=== PATIENT | female | born 1940 | race Caucasian/White ===

== ENCOUNTER 2016-12-30 14:29 | Inpatient (IN) | payer MEDICARE, OTHER ==
--- NOTE | 2016-12-30 16:12 | EDM.PDOC ---
ED HPI GI/ABDOMINAL - General Chief Complaint: Gastrointestinal Problem Stated Complaint: FROM MEDICAL CLINIC Time Seen by Provider: 12/30/16 14:38 Source of Information: Reports: Patient, RN notes reviewed - History of Present Illness INITIAL COMMENTS - FREE TEXT/NARRATIVE: 76 year old female sent over from clinic with concern of vomiting blood. She awakened nauseated about 4:00 this AM, vomited large amt,was brown, not aware of blood, than vomited again about 3 hrs later and saw an inch sized blood clot with the vomitus. No major burning or other abd pain. She was started on Xarelto about 2 wks ago for DVT L leg. She also takes motrin, about 600 mg 2 to 3 times daily for arthritis. No chest pain. However she did feel weak and dizzy at home standing. - Related Data Allergies/ADRs: Allergies Allergy/AdvReac Type Severity Reaction Status Date / Time No Known Allergies Allergy Verified 12/30/16 14:43 Home Meds: Home Meds Alendronate Sodium [Alendronate] 70 mg PO ASDIRECTED 12/30/16 [History] Amitriptyline [Elavil] 25 mg PO BEDTIME 12/30/16 [History] Calcium Carbonate 1,200 mg PO DAILY 12/30/16 [History] Docusate Sodium 100 mg PO BEDTIME 12/30/16 [History] Enalapril Maleate 20 mg PO ASDIRECTED 12/30/16 [History] Ibuprofen 600 mg PO Q4H PRN 12/30/16 [History] Multivits-Min/Iron/FA/Lutein [Centrum Silver Women Tablet] 1 each PO DAILY 12/30 [History] Rivaroxaban [Xarelto] 20 mg PO DAILY 12/30/16 [History] Sertraline HCl 100 mg PO ASDIRECTED 12/30/16 [History] atorvaSTATin Calcium [Atorvastatin Calcium] 40 mg PO DAILY 12/30/16 [History] Past Medical History HEENT History: Reports: Cataract, Impaired vision Cardiovascular History: Reports: High cholesterol Gastrointestinal History: Reports: Colon polyp, Irritable bowel syndrome 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: Musculoskeletal History: Reports: Fibromyalgia Hematologic History: Reports: Blood transfusion(s) Other Hematologic History: Post op at [place] - Past Surgical History GI Surgical History: Reports: Other (see below) Other GI Surgeries/Procedures: surgery on colon 13 years ago for pre cancer in [place] Social & Family History - Family History Cardiac: Reports: Heart failure, High cholesterol, Hypertension GI: Reports: GI bleed - Tobacco Use Smoking Status *Q: Never Smoker - Caffeine Use Caffeine Use: Reports: Tea - Recreational Drug Use Recreational Drug Use: No ED ROS GENERAL - Review of Systems Review Of Systems: See Below Constitutional: Denies: fever, chills, diaphoresis HEENT: Denies: Sinus problem, Throat pain Respiratory: Denies: Shortness of Breath, Pleuritic Chest Pain, Cough Cardiovascular: Reports: Lightheadedness. Denies: Chest pain, Edema, Syncope GI/Abdominal: Reports: Hematemesis (blood clot present with 2nd episode of vomiting), Nausea, Vomiting (has vomited twice this past morning). Denies: Abdominal pain Musculoskeletal: Reports: joint pain (hx arthritis). Denies: back pain, leg pain Skin: Denies: bruising, rash, erythema Neurological: Reports: Dizziness (when standing), Weakness (when standing). Denies: Numbness, Tingling, Change in Speech ED EXAM, GI/ABD - Physical Exam Exam: See Below General Appearance: alert, no apparent distress Eyes: bilateral: normal appearance Throat/Mouth: Normal inspection, Normal oropharynx Neck: supple, full range of motion Respiratory/Chest: no respiratory distress, lungs clear, normal breath sounds Cardiovascular: tachycardia GI/Abdominal: soft, non tender. No: guarding Rectal (Female) Exam: Other (patient had rectal exam at clinic a short time ago , heme neg at that time) Back Exam: No: CVA tenderness (L), CVA tenderness (R) Neurological: alert, oriented, no motor/sensory deficits Skin Exam: Warm, Dry, Normal color, No rash Course - Vital Signs Last Recorded V/S: Last Vital Signs Temp 97 F 12/30/16 14:46 Pulse 111 H 12/30/16 14:46 Resp 16 12/30/16 14:46 BP 133/70 12/30/16 14:46 Pulse Ox 97 12/30/16 14:46 Orthostatic Blood Pressure [ 107/74 Standing] Orthostatic Blood Pressure [ 143/123 Sitting] Orthostatic Blood Pressure [ 134/75 Supine] - Orders/Labs/Meds Orders: Active Orders 24 hr Category Date Time Status Admission Status [Patient Status] [ADT] Routine ADT 12/30/16 16:27 Active INR,PT,PROTHROMBIN TIME [COAG] Stat Lab 12/30/16 16:04 Received PTT,PARTIAL THROMBOPLSTIN TIME [COAG] Stat Lab 12/30/16 16:04 Received Labs: Laboratory Tests 12/30/16 Range/Units 16:04 Hgb 10.7 L (11.2-15.7) gm/L Meds: Medications Discontinued Medications Generic Name Dose Route Start Last Admin Trade Name Pk PRN Reason Stop Dose Admin Famotidine 20 mg 12/30/16 16:13 12/30/16 16:24 Pepcid PO 12/30/16 16:14 20 mg ONETIME ONE Administration Ondansetron HCl 4 mg 12/30/16 16:13 12/30/16 16:25 Zofran IVPUSH 12/30/16 16:14 4 mg ONETIME ONE Administration Pantoprazole Sodium 40 mg 12/30/16 16:13 12/30/16 16:28 Protonix Iv IVPUSH 12/30/16 16:14 40 mg ONETIME ONE Administration - Re-Assessments/Exams Free Text/Narrative Re-Assessment/Exam: 12/30/16 16:38 EKG at clinic showed sinus tachycardia, rate 100, no acute changes, labs from clinic as documented, hgb 12.2, glucose elevated, Hgb A1c elevated. Pt has not pain, no further nausea or vomiting here in the ED. heart rate initally 106 on arrival, has been primarily in the mid 90's. Orth's as documented, she did have BP change and increased heart rated from 107 lying to 123 standing. McG screening shows she does qualify for inpatient admission. Departure - Departure Time of Disposition: 16:20 Disposition: Admitted As Inpatient 67 Condition: fair Clinical Impression: Gastric hemorrhage Hyperglycemia due to type 2 diabetes mellitus Qualifiers: Diabetes mellitus longterm insulin use: without longterm use Qualified Code(s ): E11.65 - Type 2 diabetes mellitus with hyperglycemia Forms: ED Department Discharge ED Communication - Discussed Case With (1) Discussed Case With (1): Admitting Provider (Dr Duff, decision to admit at about 16:15.) - My Orders Last 24 Hours: My Active Orders 12/30/16 16:04 INR,PT,PROTHROMBIN TIME [COAG] Stat PTT,PARTIAL THROMBOPLSTIN TIME [COAG] Stat 12/30/16 16:27 Admission Status [Patient Status] [ADT] Routine - Assessment/Plan Last 24 Hours: My Active Orders 12/30/16 16:04 INR,PT,PROTHROMBIN TIME [COAG] Stat PTT,PARTIAL THROMBOPLSTIN TIME [COAG] Stat 12/30/16 16:27 Admission Status [Patient Status] [ADT] Routine
[2016-12-30] MEDS ORDERED: Ondansetron 4 MG/2 ML SDV IVPUSH ONE (16:13)
[2016-12-30] MEDS ORDERED: Famotidine 20 MG Tab PO ONE (16:13)
[2016-12-30] MEDS ORDERED: Pantoprazole 40 MG Vial IVPUSH ONE (16:13)
--- NOTE | 2016-12-30 18:29 | PCM.HP ---
H&P History of Present Illness - General Date of Service: 12/30/16 Admit Problem/Dx: Admission Diagnosis/Problem Admission Diagnosis/Problem Gastric hemorrhage Source of Information: Patient, Provider History Limitations: Reports: Other (query dementia). Denies: Uncooperative - History of Present Illness Initial Comments - Free Text/Narative: 76 year old female sent from her PCP, Della Dial's office after presentation of dizziness with hematemesis. Had staretd xarelto 20 mg for LLE DVT. Also appears to use NSAIDS as needed for discomfort. There is no previous history of GI bleed. Documentation from the PCP's office: WBC 16.5/Hgb 12.1/Plt 241. She has also been considered pre-diabetic based on PMH, BS with CMP, 270. LFTs are within normal limits; renal function consistent with CKD III, GFR 48. A UA supports a UTI, will start rocephin. 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 Denies chest pain , shortness of breath and diaphoresis. Vomitus described as a clot. GI history includes colonoscopy, with a documented polyp. The re has been no prior history of an UGI disorder. The patient had been started on IVF in the PCP's office, this has been continued in the ED. Onset of Symptoms: Reports: sudden Symptom Onset Date: 12/30/16 Duration of Symptoms: Reports: Hour(s): Location: Reports: abdomen Quality: Reports: Burning Severity: moderate Improves with: Reports: Medication Worsens with: Reports: None Associated Symptoms: Reports: nausea/vomiting, weakness - Related Data Allergies/Adverse Reactions: Allergies Allergy/AdvReac Type Severity Reaction Status Date / Time No Known Allergies Allergy Verified 12/30/16 14:43 Home Medications: Home Meds Alendronate Sodium [Alendronate] 70 mg PO WEEKLY 12/30/16 [History] Amitriptyline [Elavil] 25 mg PO BEDTIME 12/30/16 [History] Calcium Carbonate 1,200 mg PO DAILY 12/30/16 [History] Docusate Sodium 100 mg PO BEDTIME 12/30/16 [History] Enalapril Maleate 20 mg PO DAILY 12/30/16 [History] Ibuprofen 600 mg PO Q4H PRN 12/30/16 [History] Multivits-Min/Iron/FA/Lutein [Centrum Silver Women Tablet] 1 each PO DAILY 12/30 [History] Rivaroxaban [Xarelto] 20 mg PO DAILY 12/30/16 [History] Sertraline HCl 100 mg PO DAILY 12/30/16 [History] atorvaSTATin Calcium [Atorvastatin Calcium] 40 mg PO DAILY 12/30/16 [History] Past Medical History HEENT History: Reports: Cataract, Impaired vision Cardiovascular History: Reports: High cholesterol Gastrointestinal History: Reports: Colon polyp, Irritable bowel syndrome [employer]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: Musculoskeletal History: Reports: Fibromyalgia Hematologic History: Reports: Blood transfusion(s) Other Hematologic History: Post op at [place] - Past Surgical History GI Surgical History: Reports: Other (see below) Other GI Surgeries/Procedures: surgery on colon 13 years ago for pre cancer in [place] Social & Family History - Family History Cardiac: Reports: Heart failure, High cholesterol, Hypertension GI: Reports: GI bleed - Tobacco Use Smoking Status *Q: Never Smoker - Caffeine Use Caffeine Use: Reports: Tea - Recreational Drug Use Recreational Drug Use: No H&P Review of Systems - Review of Systems: Review Of Systems: See Below General: Reports: weakness HEENT: Reports: no symptoms Pulmonary: Reports: No Symptoms Cardiovascular: Reports: lightheadedness Gastrointestinal: Reports: Abdominal pain (epigastric) Genitourinary: Reports: no symptoms Musculoskeletal: Reports: no symptoms Skin: Reports: no symptoms Psychiatric: Reports: no symptoms Neurological: Reports: No Symptoms Hematologic/Lymphatic: Reports: no symptoms Immunologic: Reports: no symptoms Exam - Exam Exam: See Below - Vital Signs Vital Signs: Last Vital Signs Temp 36.1 C 12/30/16 14:46 Pulse 99 12/30/16 17:44 Resp 20 12/30/16 17:44 BP 114/75 12/30/16 17:44 Pulse Ox 93 L 12/30/16 17:44 Weight: 68.039 kg - Exam Quality Assessment: DVT prophylaxis General: alert, oriented, cooperative HEENT: Conjunctiva clear, EACs clear, EOMI, Mucosa moist & pink, Nares patent, Normal nasal septum, Pupils equal, Pupils reactive Neck: trachea midline Lungs: Normal respiratory effort Cardiovascular: regular rate, tachycardia Abdomen: normal bowel sounds, soft, tenderness (epigastric) (Female) Exam: Deferred Rectal (Female) Exam: Deferred Back Exam: normal inspection Extremities: normal inspection Skin: warm Neurological: cranial nerves intact Neuro Extensive - Mental Status: alert, oriented x3 Neuro Extensive - Motor, Sensory, Reflexes: CN II-XII intact Psychiatric: alert, normal affect, normal mood - Patient Data Result Diagrams: 12/31/16 06:12 12/31/16 06:12 *Q Meaningful Use (ADM) - VTE *Q VTE Criteria *Q: - Stroke *Q Stroke Criteria *Q: - AMI *Q AMI Criteria *Q: - Problem List (1) Irritable bowel syndrome SNOMED Code(s): 36530183, 99514443 ICD Code: K58.9 - IRRITABLE BOWEL SYNDROME WITHOUT DIARRHEA Status: Acute Current Visit: Yes (2) Colon polyp SNOMED Code(s): 20107202 ICD Code: K63.5 - POLYP OF COLON Status: Acute Current Visit: Yes (3) Blood clot in vein SNOMED Code(s): 555850796 ICD Code: I82.90 - ACUTE EMBOLISM AND THROMBOSIS OF UNSPECIFIED VEIN Status : Acute Current Visit: Yes (4) Gastric hemorrhage SNOMED Code(s): 47900882 ICD Code: K92.2 - GASTROINTESTINAL HEMORRHAGE, UNSPECIFIED Status: Acute Current Visit: Yes (5) Hyperglycemia due to type 2 diabetes mellitus SNOMED Code(s): 548866614920994, 666128852841717 ICD Code: E11.65 - TYPE 2 DIABETES MELLITUS WITH HYPERGLYCEMIA Status: Acute Current Visit: Yes Qualifiers: Diabetes mellitus prison insulin use: without manager wholesale use Qualified Code(s): E11.65 - Type 2 diabetes mellitus with hyperglycemia (6) Memory loss SNOMED Code(s): 03514336 ICD Code: R41.3 - OTHER AMNESIA Status: Acute Current Visit: Yes Problem List Initiated/Reviewed/Updated: Yes Orders Last 24hrs: Active Orders 24 hr Category Date Time Status Activity as Tolerated [RC] .Routine Care 12/30/16 18:10 Ordered Antiembolic Devices [RC] PER UNIT ROUTINE Care 12/30/16 18:11 Ordered Notify Provider Consults [RC] ASDIRECTED Care 12/30/16 18:11 Ordered Vital Signs [RC] PER UNIT ROUTINE Care 12/30/16 18:08 Active Consult to Occupational Therapy [OT Evaluation and Cons 12/31/16 09:00 Ordered Treatment] [CONS] Routine Consult to Physical Therapy [PT Evaluation and Cons 12/31/16 09:00 Ordered Treatment] [CONS] Routine Consult to Physician [CONS] Routine Cons 12/30/16 18:10 Ordered Consult to Customer Training Specialist [CONS] Routine Cons 12/31/16 10:00 Ordered Clear Liquid Diet [DIET] Diet 12/30/16 Dinner Ordered BASIC METABOLIC PANEL,BMP [CHEM] DAILY Lab 12/31/16 05:00 Ordered BASIC METABOLIC PANEL,BMP [CHEM] DAILY Lab 01/01/17 05:00 Ordered BASIC METABOLIC PANEL,BMP [CHEM] DAILY Lab 01/02/17 05:00 Ordered HELICOBACTER PYLORI AB IGG [CHEM] Routine Lab 12/30/16 20:00 Ordered HGB [HEMOGLOBIN] [HEME] DAILY Lab 12/31/16 05:00 Ordered HGB [HEMOGLOBIN] [HEME] DAILY Lab 01/01/17 05:00 Ordered HGB [HEMOGLOBIN] [HEME] Routine Lab 12/30/16 20:00 Ordered MG [MAGNESIUM] [CHEM] DAILY Lab 12/31/16 05:00 Ordered MG [MAGNESIUM] [CHEM] DAILY Lab 01/01/17 05:00 Ordered Amitriptyline [Elavil] Med 12/30/16 21:00 Ordered 25 mg PO BEDTIME Enalapril Maleate Med 12/30/16 18:30 Ordered 20 mg PO ASDIRECTED Pantoprazole [Protonix IV] Med 12/30/16 18:15 Ordered 40 mg IVPUSH Q12H atorvaSTATin Calcium Med 12/31/16 09:00 Ordered 40 mg PO DAILY PETRA Hose [Antiembolic Hose] [OM.PC] Routine Oth 12/30/16 18:11 Ordered Medication Orders Amitriptyline HCl (Elavil) 25 mg PO BEDTIME CHRISTINE Non-Formulary Medication (Enalapril Maleate) 20 mg PO ASDIRECTED CHRISTINE Pantoprazole Sodium (Protonix Iv) 40 mg IVPUSH Q12H CHRISTINE Rosuvastatin Calcium (Crestor) 10 mg PO DAILY CHRISTINE Assessment/Plan Comment:: Impression: Recent initiation of Xarelto for LE DVT, may have been for (superficial thrombophlebitis) possible clot, saphenofemoral junction, the medication started in mid Nov 2016. NSAID use for OA/pain No GI history of UGI, has LGI hx, see great summary provided by general surgery Dementia, CT of head ordered; cognitive eval/lab work. Plan: IVF Clear liquids DM teaching/sliding scale Protonix 40 mg IV BID. General surgery in put greatly appreciated EGD on 01/01/17. DVT prophylaxis
--- NOTE | 2016-12-30 19:30 | PCM.CONS ---
H&P History of Present Illness - General Date of Service: 12/30/16 Admit Problem/Dx: Admission Diagnosis/Problem Admission Diagnosis/Problem Gastric hemorrhage Source of Information: Patient, Old records History Limitations: Reports: No limitations - History of Present Illness Initial Comments - Free Text/Narative: CC - GI bleed HPI - 76 yo F with GI bleeding this AM starting at 0200. Woke up shivering. Threw up at that point, dark in color.[place] dizzy afterwards. Threw up again, dark again. Pass "pieces of liver in her BM x 2." Called clinic and she was told to come into ED. No syncope. No chest pain or shortness of breath. Never has happened before. Takes 3 Ibuprofen and takes 3 at bedtime. No stomach pain. Does have a lot of gas. In ED Hb 10.7, baseline Hb 14. /14 - superficial thrombophlebitis 11/22 ? clot near the saphenofemoral junction -> started on Xarelto Last mammogram - 02/2016 [facility] 2 Poor historian due to suspected dementia. Majority of history obtained from review of the records. PMH - Varicose veins, Depression, Fibromyalgia, Stress incontinence, HTN, dyslipidemia, precancerous colon polyps, anal stenosis, DVT (on Xarelto) 2-3 weeks. PSxH - Hysterectomy, Dysplastic rectal polyp requiring TEM with resultant stenosis req anal dilation x 9, sphincteroplasty, D and C, C -section, several colonoscopies, last 11/27/[address] Sol with polyps (tubular adenoma and hyperplastic polyp) and melanosis coli noted with repeat colonoscopy recommended for 2018. 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 lives with Clay. Lives [place] of [place]. Daughter in law works at [employer]. [facility] - [employer] and sister with Breast cancer,? daughter with hx of blood clots she thinks ROS - As per HPI, otherwise negative PCP - Sees a EMBROIDERY DESIGNER at [facility], not sure who - Related Data Allergies/Adverse Reactions: Allergies Allergy/AdvReac Type Severity Reaction Status Date / Time No Known Allergies Allergy Verified 12/30/16 14:43 Home Medications: Home Meds Alendronate Sodium [Alendronate] 70 mg PO WEEKLY 12/30/16 [History] Amitriptyline [Elavil] 25 mg PO BEDTIME 12/30/16 [History] Calcium Carbonate 1,200 mg PO DAILY 12/30/16 [History] Docusate Sodium 100 mg PO BEDTIME 12/30/16 [History] Enalapril Maleate 20 mg PO DAILY 12/30/16 [History] Ibuprofen 600 mg PO Q4H PRN 12/30/16 [History] Multivits-Min/Iron/FA/Lutein [Centrum Silver Women Tablet] 1 each PO DAILY 12/30 [History] Rivaroxaban [Xarelto] 20 mg PO DAILY 12/30/16 [History] Sertraline HCl 100 mg PO DAILY 12/30/16 [History] atorvaSTATin Calcium [Atorvastatin Calcium] 40 mg PO DAILY 12/30/16 [History] Past Medical History HEENT History: Reports: Cataract, Impaired vision Cardiovascular History: Reports: High cholesterol Gastrointestinal History: Reports: Colon polyp, Irritable bowel syndrome 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: Musculoskeletal History: Reports: Fibromyalgia Hematologic History: Reports: Blood transfusion(s) Other Hematologic History: Post op at [place] - Past Surgical History GI Surgical History: Reports: Other (see below) Other GI Surgeries/Procedures: surgery on colon 13 years ago for pre cancer in [place] Social & Family History - Family History Cardiac: Reports: Heart failure, High cholesterol, Hypertension GI: Reports: GI bleed - Tobacco Use Smoking Status *Q: Never Smoker - Caffeine Use Caffeine Use: Reports: Tea - Recreational Drug Use Recreational Drug Use: No H&P Review of Systems - Review of Systems: Review Of Systems: ROS reveals no pertinent complaints other than HPI. Exam - Exam Exam: See Below - Vital Signs Vital Signs: Last Vital Signs Temp 97 F 12/30/16 14:46 Pulse 99 12/30/16 17:44 Resp 20 12/30/16 17:44 BP 114/75 12/30/16 17:44 Pulse Ox 93 L 12/30/16 17:44 Weight: 150 lb - Exam Quality Assessment: No: supplemental oxygen General: alert, oriented, cooperative HEENT: Conjunctiva clear, Hearing intact. No: Scleral icterus Lungs: Clear to auscultation, Normal respiratory effort Cardiovascular: regular rate, regular rhythm Abdomen: soft, tenderness (mild epigastric ). No: peritoneal signs, distention , guarding, rigidity, rebound Rectal (Female) Exam: Deferred Extremities: other (varicosities ). No: clubbing, cyanosis, calf tenderness, edema Skin: warm, dry, intact Neurological: cranial nerves intact, normal speech Neuro Extensive - Mental Status: memory loss-remote events, memory loss-recent events. No: memory intact Psychiatric: alert, normal affect, normal mood - Patient Data Result Diagrams: 12/31/16 06:12 12/31/16 06:12 Consult PN Assessment/Plan Procedures: Procedures ASSAY THYROID STIM HORMONE (08/13/16) C-REACTIVE PROTEIN (11/19/16) COMP SCREEN MAMMOGRAM ADD-ON (02/09/16) COMPLETE CBC AUTOMATED (08/13/16) COMPLETE CBC W/AUTO DIFF WBC (11/19/16) COMPREHEN METABOLIC PANEL (08/13/16) DXA BONE DENSITY AXIAL (03/05/16) EXTRACRANIAL BILAT STUDY (08/13/16) EXTREMITY STUDY (11/22/16) LIPID PANEL (08/13/16) MANUAL THERAPY 1/> REGIONS (03/22/15) METABOLIC PANEL TOTAL CA (11/19/16) MRI JOINT UPR EXTREM W/O DYE (12/18/15) MRI NECK SPINE W/O DYE (01/03/16) OCCULT BLD FECES 1-3 TESTS (03/28/14) PT EVALUATION (02/02/15) ROUTINE VENIPUNCTURE (11/19/16) THERAPEUTIC EXERCISES (03/22/15) ULTRASOUND THERAPY (03/22/15) URINALYSIS AUTO W/O SCOPE (08/13/16) X-RAY EXAM NECK SPINE 2-3 VW (01/25/15) X-RAY EXAM OF SHOULDER (01/25/15) (1) Memory loss SNOMED Code(s): 05147550 Code(s): R41.3 - OTHER AMNESIA Current Visit: Yes (2) Blood clot in vein SNOMED Code(s): 139241571 Code(s): I82.90 - ACUTE EMBOLISM AND THROMBOSIS OF UNSPECIFIED VEIN Current Visit: Yes (3) Gastric hemorrhage SNOMED Code(s): 70686948 Code(s): K92.2 - GASTROINTESTINAL HEMORRHAGE, UNSPECIFIED Current Visit: Yes Problem List Initiated/Reviewed/Updated: Yes Plan: 76-year-old woman with GI hemorrhage (maroon stools and coffee-ground emesis), apparently new diagnosis of memory loss, and recent diagnosis of blood clot, ? Actual DVT In regard to the patient's GI hemorrhage, as she is on Xarelto and is 76, will not be able to perform any endoscopy until Friday, unless she begins bleeding briskly and emergent intervention is needed. We will plan for diagnostic EGD on Friday. The patient is due for colonoscopy in 2018, but would like to have this with Dr. Sol. We discussed that if there was no obvious source of bleeding on her upper endoscopy, colonoscopy would be indicated. I discussed with her that she would need to avoid ibuprofen and citrus/spicy foods. We discussed the patient's memory loss. She is aware that she has some memory loss. She would like it to not worsen. It does not appear that this has been worked up before as she receives intermittent problem-based care and does not follow with a routine provider. CT of the head was ordered and I discussed this with Dr. Duff who will be ordering further testing. The patient is currently on Xarelto due to a supposed deep vein thrombosis, however upon review of her ultrasound she initially had a superficial thrombophlebitis on November 19, this was followed by a questionable clot NEAR saphenofemoral junction on ultrasound from November 22. This is not technically a DVT. As the patient has had complications from her treatment for supposed DVT, I am going to obtain additional ultrasound to clarify whether he DVT is actually present. I spent one hour with the patient, greater than 50% was spent in counseling, review of the records with the patient, in discussion with the primary provider. Will plan for diagnostic EGD on Friday. Continue proton pump inhibitors.
--- NOTE | 2016-12-30 20:47 | CT ---
Head CT Technique: Multiple axial sections through the brain were obtained. Intravenous contrast was not utilized. Comparison: No previous intracranial imaging. Findings: Ventricles along with basal cisterns and sulci over the convexities are mildly prominent. Very minimal diminished density is noted within the periventricular white matter which is compatible with small vessel ischemic demyelination change. No other abnormal parenchymal densities are seen. No evidence of intracranial hemorrhage. No midline shift or mass effect is seen. Bone window settings were reviewed which show minimal mucosal thickening within the ethmoid sinus. Mucosal thickening or possibly small air-fluid level is noted within the sphenoid sinus. Incidental hyperostosis interna frontalis is noted. No acute calvarial abnormality is seen. Impression: 1. Sinus findings. Difficult to exclude mild acute sinusitis. Please correlate with patient's symptoms if possible. 2. Mild senescent change is seen along with other incidental findings. 3. Nothing acute is otherwise identified on noncontrast head CT study. Diagnostic code #3
[2016-12-30] MEDS: Amitriptyline 25 MG Tab PO SCH (21:53)
[2016-12-30] MEDS: cefTRIAXone 1 GM in Sodium Chloride 0.9% 100 ML IV SCH (21:53)
[2016-12-30] MEDS: Sodium Chloride 0.45% 1,000 ML IV SCH (21:53)
[2016-12-30] MEDS: Insulin Aspart 100 Units/ML 3 ML Pen SUBCUT SCH (22:01)
[2016-12-31] MEDS: Pantoprazole 40 MG Vial IVPUSH SCH ×2 (04:40→17:00)
[2016-12-31] MEDS: Insulin Aspart 100 Units/ML 3 ML Pen SUBCUT SCH ×4 (06:38→21:07)
[2016-12-31] MEDS: Rosuvastatin 10 MG Tab PO SCH (10:12)
--- NOTE | 2016-12-31 11:49 | US ---
Left lower extremity deep venous ultrasound: Duplex and color flow imaging was obtained of the left common femoral, superficial femoral, greater saphenous, popliteal, posterior tibial and peroneal veins. Right common femoral vein also evaluated. Comparison: Previous lower extremity venous ultrasounds of 11/22/16 and 11/19/16. Findings: Previous exam showed a greater saphenous clot which is no longer appreciated. Small eccentric filling defect noted within the proximal left femoral vein possibly due to minimal amount of nonobstructing thrombus. This was not appreciated with certainty on prior studies. Other veins show no thrombosis. Veins show normal compression and augmentation. Lack of phasic flow seen within the posterior tibial vein. Other veins show normal phasic flow. Common femoral vein on the right side is patent. Impression: 1. Previous greater saphenous clot is no longer seen. 2. Small eccentric filling defect within the proximal left femoral vein felt compatible with minimal amount of nonobstructing thrombus. This was not definitely appreciated on prior exams. Recommend follow-up exam if patient's symptoms remain stable in one week to make sure this finding is stable or resolves. 3. Other portions of the left lower extremity venous ultrasound are unremarkable. Diagnostic code #3
--- NOTE | 2016-12-31 12:10 | PCM.CONSN ---
- General Info Date of Service: 12/31/16 - Review of Systems Systems Review Comment:: No particular complaints today. No further emesis or bloody stools overnight. Upon prompting, patient states she may have a little bit of epigastric tenderness. - Patient Data Vitals - most recent: Last Vital Signs Temp 98.4 F 12/31/16 07:51 Pulse 83 12/31/16 07:51 Resp 18 12/31/16 07:51 BP 131/75 12/31/16 10:12 Pulse Ox 94 L 12/31/16 07:51 Weight - most recent: 150 lb I&O - last 24 hours: Intake & Output 12/30/16 12/31/16 12/31/16 22:59 06:59 14:59 Intake Total 1271 Output Total 1350 Balance -79 Lab Results last 24 hrs: Laboratory Results - last 24 hr 12/30/16 12/30/16 12/30/16 Range/Units 19:52 19:53 22:00 WBC (3.98-10.04) K/mm3 RBC (3.98-5.22) M/mm3 Hgb 10.2 L (11.2-15.7) gm/L Hct (34.1-44.9) % MCV (79.4-94.8) fl MCH (25.6-32.2) pg MCHC (32.2-35.5) g/dl RDW Std Deviation (36.4-46.3) fL Plt Count (182-369) K/mm3 MPV (9.4-12.3) fl Neut % (Auto) (34.0-71.1) % Lymph % (Auto) (19.3-51.7) % [place] % (Auto) (4.7-12.5) % Eos % (Auto) (0.7-5.8) Baso % (Auto) (0.1-1.2) % Neut # (Auto) (1.56-6.13) K/mm3 Lymph # (Auto) (1.18-3.74) K/mm3 [place] # (Auto) (0.24-0.36) K/mm3 Eos # (Auto) (0.04-0.36) K/mm3 Baso # (Auto) (0.01-0.08) K/mm3 Sodium (136-145) mEq/L Potassium (3.5-5.1) mEq/L Chloride (98-107) mEq/L Carbon Dioxide (21-32) mEq/L Anion Gap (5-15) BUN (7-18) mg/dL Creatinine (0.55-1.02) mg/dL Est Cr Clr Drug Dosing mL/min Estimated GFR (MDRD) (>60) mL/min BUN/Creatinine Ratio (14-18) Glucose (83-115) mg/dL POC Glucose 107 (83-110) mg/dL Hemoglobin A1c (4.50-6.20) % Calcium (8.5-10.1) mg/dL Magnesium (1.8-2.4) mg/dl Vitamin B12 (193-986) pg/ml Folate (8.6-58.9) ng/mL TSH 3rd Generation (0.358-3.74) uIU/mL Urine Color (Yellow) Urine Appearance (Clear) Urine pH (5.0-8.0) Ur Specific [place] (1.005-1.030) Urine Protein (Negative) Urine Glucose (UA) (Negative) Urine Ketones (Negative) Urine Occult Blood (Negative) Urine Nitrite (Negative) Urine Bilirubin (Negative) Urine Urobilinogen (0.2-1.0) Ur Leukocyte Esterase (Negative) Urine RBC (0-5) /hpf Urine WBC (0-5) /hpf Ur Epithelial Cells (0-5) /hpf Urine Bacteria (FEW) /hpf Urine Mucus (FEW) /hpf H. pylori IgG Antibody Negative (NEGATIVE) 12/30/16 12/31/16 12/31/16 Range/Units 22:30 06:12 06:12 WBC 10.93 H (3.98-10.04) K/mm3 RBC 3.21 L (3.98-5.22) M/mm3 Hgb 9.6 L (11.2-15.7) gm/L Hct 29.3 L (34.1-44.9) % MCV 91.3 (79.4-94.8) fl MCH 29.9 (25.6-32.2) pg MCHC 32.8 (32.2-35.5) g/dl RDW Std Deviation 45.1 (36.4-46.3) fL Plt Count 167 L (182-369) K/mm3 MPV 12.8 H (9.4-12.3) fl Neut % (Auto) 64.4 (34.0-71.1) % Lymph % (Auto) 23.3 (19.3-51.7) % [place] % (Auto) 9.6 (4.7-12.5) % Eos % (Auto) 1.8 (0.7-5.8) Baso % (Auto) 0.5 (0.1-1.2) % Neut # (Auto) 7.04 H (1.56-6.13) K/mm3 Lymph # (Auto) 2.55 (1.18-3.74) K/mm3 [place] # (Auto) 1.05 H (0.24-0.36) K/mm3 Eos # (Auto) 0.20 (0.04-0.36) K/mm3 Baso # (Auto) 0.05 (0.01-0.08) K/mm3 Sodium 140 (136-145) mEq/L Potassium 3.7 (3.5-5.1) mEq/L Chloride 105 (98-107) mEq/L Carbon Dioxide 26 (21-32) mEq/L Anion Gap 12.7 (5-15) BUN 30 H (7-18) mg/dL Creatinine 0.9 (0.55-1.02) mg/dL Est Cr Clr Drug Dosing 44.68 mL/min Estimated GFR (MDRD) > 60 (>60) mL/min BUN/Creatinine Ratio 33.3 H (14-18) Glucose 132 H (83-115) mg/dL POC Glucose (83-110) mg/dL Hemoglobin A1c (4.50-6.20) % Calcium 8.4 L (8.5-10.1) mg/dL Magnesium 2.1 (1.8-2.4) mg/dl Vitamin B12 (193-986) pg/ml Folate (8.6-58.9) ng/mL TSH 3rd Generation 1.143 (0.358-3.74) uIU/mL Urine Color Yellow (Yellow) Urine Appearance Clear (Clear) Urine pH 6.0 (5.0-8.0) Ur Specific [place] 1.015 (1.005-1.030) Urine Protein Negative (Negative) Urine Glucose (UA) Negative (Negative) Urine Ketones Negative (Negative) Urine Occult Blood Negative (Negative) Urine Nitrite Negative (Negative) Urine Bilirubin Negative (Negative) Urine Urobilinogen 0.2 (0.2-1.0) Ur Leukocyte Esterase 1+ H (Negative) Urine RBC Not seen (0-5) /hpf Urine WBC 5-10 H (0-5) /hpf Ur Epithelial Cells 0-5 (0-5) /hpf Urine Bacteria Few (FEW) /hpf Urine Mucus Moderate H (FEW) /hpf H. pylori IgG Antibody (NEGATIVE) 12/31/16 12/31/16 12/31/16 Range/Units 06:12 06:12 06:17 WBC (3.98-10.04) K/mm3 RBC (3.98-5.22) M/mm3 Hgb (11.2-15.7) gm/L Hct (34.1-44.9) % MCV (79.4-94.8) fl MCH (25.6-32.2) pg MCHC (32.2-35.5) g/dl RDW Std Deviation (36.4-46.3) fL Plt Count (182-369) K/mm3 MPV (9.4-12.3) fl Neut % (Auto) (34.0-71.1) % Lymph % (Auto) (19.3-51.7) % [place] % (Auto) (4.7-12.5) % Eos % (Auto) (0.7-5.8) Baso % (Auto) (0.1-1.2) % Neut # (Auto) (1.56-6.13) K/mm3 Lymph # (Auto) (1.18-3.74) K/mm3 [place] # (Auto) (0.24-0.36) K/mm3 Eos # (Auto) (0.04-0.36) K/mm3 Baso # (Auto) (0.01-0.08) K/mm3 Sodium (136-145) mEq/L Potassium (3.5-5.1) mEq/L Chloride (98-107) mEq/L Carbon Dioxide (21-32) mEq/L Anion Gap (5-15) BUN (7-18) mg/dL Creatinine (0.55-1.02) mg/dL Est Cr Clr Drug Dosing mL/min Estimated GFR (MDRD) (>60) mL/min BUN/Creatinine Ratio (14-18) Glucose (83-115) mg/dL POC Glucose 138 H (83-110) mg/dL Hemoglobin A1c 8.40 H (4.50-6.20) % Calcium (8.5-10.1) mg/dL Magnesium (1.8-2.4) mg/dl Vitamin B12 368 (193-986) pg/ml Folate 19.2 (8.6-58.9) ng/mL TSH 3rd Generation (0.358-3.74) uIU/mL Urine Color (Yellow) Urine Appearance (Clear) Urine pH (5.0-8.0) Ur Specific [place] (1.005-1.030) Urine Protein (Negative) Urine Glucose (UA) (Negative) Urine Ketones (Negative) Urine Occult Blood (Negative) Urine Nitrite (Negative) Urine Bilirubin (Negative) Urine Urobilinogen (0.2-1.0) Ur Leukocyte Esterase (Negative) Urine RBC (0-5) /hpf Urine WBC (0-5) /hpf Ur Epithelial Cells (0-5) /hpf Urine Bacteria (FEW) /hpf Urine Mucus (FEW) /hpf H. pylori IgG Antibody (NEGATIVE) Med Orders - Current: Current Medications Amitriptyline HCl (Elavil) 25 mg PO BEDTIME [facility] Last Admin: 12/30/16 21:53 Dose: 25 mg Enalapril Maleate (Vasotec) 10 mg PO BID [facility] Last Admin: 12/31/16 10:12 Dose: 10 mg Ceftriaxone Sodium 1 gm/ (Sodium Chloride) 100 mls @ 200 mls/hr IV Q24H [facility] Last Admin: 12/30/16 21:53 Dose: 200 mls/hr Sodium Chloride (Sodium Chloride 0.45%) 1,000 mls @ 75 mls/hr IV ASDIRECTED [facility] Last Admin: 12/30/16 21:53 Dose: 75 mls/hr Insulin Aspart (Novolog) 0 unit SUBCUT QIDACANDBED [facility] PRN Reason: Protocol Last Admin: 12/31/16 06:38 Dose: Not Given Pantoprazole Sodium (Protonix Iv) 40 mg IVPUSH Q12H [facility] Last Admin: 12/31/16 04:40 Dose: 40 mg Rosuvastatin Calcium (Crestor) 10 mg PO DAILY [facility] Last Admin: 12/31/16 10:12 Dose: 10 mg Discontinued Medications Famotidine (Pepcid) 20 mg PO ONETIME ONE Stop: 12/30/16 16:14 Last Admin: 12/30/16 16:24 Dose: 20 mg Ondansetron HCl (Zofran) 4 mg IVPUSH ONETIME ONE Stop: 12/30/16 16:14 Last Admin: 12/30/16 16:25 Dose: 4 mg Pantoprazole Sodium (Protonix Iv) 40 mg IVPUSH ONETIME ONE Stop: 12/30/16 16:14 Last Admin: 12/30/16 16:28 Dose: 40 mg - Exam Quality Assessment: No: supplemental oxygen General: alert, cooperative, no acute distress Lungs: Normal respiratory effort Cardiovascular: Regular Rate (8) Abdomen: soft, no distension, tenderness. No: rigidity, rebound, guarding Skin: warm, dry, intact Neurological: no new focal deficit Consult PN Assessment/Plan Procedures: Procedures ASSAY THYROID STIM HORMONE (08/13/16) C-REACTIVE PROTEIN (11/19/16) COMP SCREEN MAMMOGRAM ADD-ON (02/09/16) COMPLETE CBC AUTOMATED (08/13/16) COMPLETE CBC W/AUTO DIFF WBC (11/19/16) COMPREHEN METABOLIC PANEL (08/13/16) DXA BONE DENSITY AXIAL (03/05/16) EXTRACRANIAL BILAT STUDY (08/13/16) EXTREMITY STUDY (11/22/16) LIPID PANEL (08/13/16) MANUAL THERAPY 1/> REGIONS (03/22/15) METABOLIC PANEL TOTAL CA (11/19/16) MRI JOINT UPR EXTREM W/O DYE (12/18/15) MRI NECK SPINE W/O DYE (01/03/16) OCCULT BLD FECES 1-3 TESTS (03/28/14) PT EVALUATION (02/02/15) ROUTINE VENIPUNCTURE (11/19/16) THERAPEUTIC EXERCISES (03/22/15) ULTRASOUND THERAPY (03/22/15) URINALYSIS AUTO W/O SCOPE (08/13/16) X-RAY EXAM NECK SPINE 2-3 VW (01/25/15) X-RAY EXAM OF SHOULDER (01/25/15) (1) Memory loss SNOMED Code(s): 82453251 Code(s): R41.3 - OTHER AMNESIA Current Visit: Yes (2) Blood clot in vein SNOMED Code(s): 977135028 Code(s): I82.90 - ACUTE EMBOLISM AND THROMBOSIS OF UNSPECIFIED VEIN Current Visit: Yes (3) Gastric hemorrhage SNOMED Code(s): 84085006 Code(s): K92.2 - GASTROINTESTINAL HEMORRHAGE, UNSPECIFIED Current Visit: Yes Problem List Initiated/Reviewed/Updated: Yes Plan: 76-year-old woman with GI hemorrhage (maroon stools and coffee-ground emesis), apparently new diagnosis of memory loss, and recent diagnosis of blood clot Plan for EGD on Friday Continue PPI CT head with small vessel disease/ no acute findings US - small femoral DVT (non-occlusive) Discussed w/ Dr. Duff
--- NOTE | 2016-12-31 12:19 | PCM.PN ---
- General Info Date of Service: 12/31/16 Functional Status: Reports: tolerating diet (clear liquids) - Review of Systems General: Reports: Weakness HEENT: Reports: no symptoms Pulmonary: Reports: no symptoms Cardiovascular: Reports: No Symptoms Gastrointestinal: Reports: No symptoms Genitourinary: Reports: no symptoms Musculoskeletal: Reports: no symptoms Skin: Reports: no symptoms Neurological: Reports: No Symptoms Psychiatric: Reports: no symptoms - Patient Data Vitals - most recent: Last Vital Signs Temp 36.9 C 12/31/16 07:51 Pulse 83 12/31/16 07:51 Resp 18 12/31/16 07:51 BP 131/75 12/31/16 10:12 Pulse Ox 94 L 12/31/16 07:51 Weight - most recent: 68.039 kg I&O - last 24 hours: Intake & Output 12/30/16 12/31/16 12/31/16 22:59 06:59 14:59 Intake Total 1271 Output Total 1350 Balance -79 Lab Results last 24 hrs: Laboratory Results - last 24 hr 12/30/16 12/30/16 12/30/16 Range/Units 19:52 19:53 22:00 WBC (3.98-10.04) K/mm3 RBC (3.98-5.22) M/mm3 Hgb 10.2 L (11.2-15.7) gm/L Hct (34.1-44.9) % MCV (79.4-94.8) fl MCH (25.6-32.2) pg MCHC (32.2-35.5) g/dl RDW Std Deviation (36.4-46.3) fL Plt Count (182-369) K/mm3 MPV (9.4-12.3) fl Neut % (Auto) (34.0-71.1) % Lymph % (Auto) (19.3-51.7) % [place] % (Auto) (4.7-12.5) % Eos % (Auto) (0.7-5.8) Baso % (Auto) (0.1-1.2) % Neut # (Auto) (1.56-6.13) K/mm3 Lymph # (Auto) (1.18-3.74) K/mm3 [place] # (Auto) (0.24-0.36) K/mm3 Eos # (Auto) (0.04-0.36) K/mm3 Baso # (Auto) (0.01-0.08) K/mm3 Sodium (136-145) mEq/L Potassium (3.5-5.1) mEq/L Chloride (98-107) mEq/L Carbon Dioxide (21-32) mEq/L Anion Gap (5-15) BUN (7-18) mg/dL Creatinine (0.55-1.02) mg/dL Est Cr Clr Drug Dosing mL/min Estimated GFR (MDRD) (>60) mL/min BUN/Creatinine Ratio (14-18) Glucose (83-115) mg/dL POC Glucose 107 (83-110) mg/dL Hemoglobin A1c (4.50-6.20) % Calcium (8.5-10.1) mg/dL Magnesium (1.8-2.4) mg/dl Vitamin B12 (193-986) pg/ml Folate (8.6-58.9) ng/mL TSH 3rd Generation (0.358-3.74) uIU/mL Urine Color (Yellow) Urine Appearance (Clear) Urine pH (5.0-8.0) Ur Specific [place] (1.005-1.030) Urine Protein (Negative) Urine Glucose (UA) (Negative) Urine Ketones (Negative) Urine Occult Blood (Negative) Urine Nitrite (Negative) Urine Bilirubin (Negative) Urine Urobilinogen (0.2-1.0) Ur Leukocyte Esterase (Negative) Urine RBC (0-5) /hpf Urine WBC (0-5) /hpf Ur Epithelial Cells (0-5) /hpf Urine Bacteria (FEW) /hpf Urine Mucus (FEW) /hpf H. pylori IgG Antibody Negative (NEGATIVE) 12/30/16 12/31/16 12/31/16 Range/Units 22:30 06:12 06:12 WBC 10.93 H (3.98-10.04) K/mm3 RBC 3.21 L (3.98-5.22) M/mm3 Hgb 9.6 L (11.2-15.7) gm/L Hct 29.3 L (34.1-44.9) % MCV 91.3 (79.4-94.8) fl MCH 29.9 (25.6-32.2) pg MCHC 32.8 (32.2-35.5) g/dl RDW Std Deviation 45.1 (36.4-46.3) fL Plt Count 167 L (182-369) K/mm3 MPV 12.8 H (9.4-12.3) fl Neut % (Auto) 64.4 (34.0-71.1) % Lymph % (Auto) 23.3 (19.3-51.7) % [place] % (Auto) 9.6 (4.7-12.5) % Eos % (Auto) 1.8 (0.7-5.8) Baso % (Auto) 0.5 (0.1-1.2) % Neut # (Auto) 7.04 H (1.56-6.13) K/mm3 Lymph # (Auto) 2.55 (1.18-3.74) K/mm3 [place] # (Auto) 1.05 H (0.24-0.36) K/mm3 Eos # (Auto) 0.20 (0.04-0.36) K/mm3 Baso # (Auto) 0.05 (0.01-0.08) K/mm3 Sodium 140 (136-145) mEq/L Potassium 3.7 (3.5-5.1) mEq/L Chloride 105 (98-107) mEq/L Carbon Dioxide 26 (21-32) mEq/L Anion Gap 12.7 (5-15) BUN 30 H (7-18) mg/dL Creatinine 0.9 (0.55-1.02) mg/dL Est Cr Clr Drug Dosing 44.68 mL/min Estimated GFR (MDRD) > 60 (>60) mL/min BUN/Creatinine Ratio 33.3 H (14-18) Glucose 132 H (83-115) mg/dL POC Glucose (83-110) mg/dL Hemoglobin A1c (4.50-6.20) % Calcium 8.4 L (8.5-10.1) mg/dL Magnesium 2.1 (1.8-2.4) mg/dl Vitamin B12 (193-986) pg/ml Folate (8.6-58.9) ng/mL TSH 3rd Generation 1.143 (0.358-3.74) uIU/mL Urine Color Yellow (Yellow) Urine Appearance Clear (Clear) Urine pH 6.0 (5.0-8.0) Ur Specific [place] 1.015 (1.005-1.030) Urine Protein Negative (Negative) Urine Glucose (UA) Negative (Negative) Urine Ketones Negative (Negative) Urine Occult Blood Negative (Negative) Urine Nitrite Negative (Negative) Urine Bilirubin Negative (Negative) Urine Urobilinogen 0.2 (0.2-1.0) Ur Leukocyte Esterase 1+ H (Negative) Urine RBC Not seen (0-5) /hpf Urine WBC 5-10 H (0-5) /hpf Ur Epithelial Cells 0-5 (0-5) /hpf Urine Bacteria Few (FEW) /hpf Urine Mucus Moderate H (FEW) /hpf H. pylori IgG Antibody (NEGATIVE) 12/31/16 12/31/16 12/31/16 Range/Units 06:12 06:12 06:17 WBC (3.98-10.04) K/mm3 RBC (3.98-5.22) M/mm3 Hgb (11.2-15.7) gm/L Hct (34.1-44.9) % MCV (79.4-94.8) fl MCH (25.6-32.2) pg MCHC (32.2-35.5) g/dl RDW Std Deviation (36.4-46.3) fL Plt Count (182-369) K/mm3 MPV (9.4-12.3) fl Neut % (Auto) (34.0-71.1) % Lymph % (Auto) (19.3-51.7) % [place] % (Auto) (4.7-12.5) % Eos % (Auto) (0.7-5.8) Baso % (Auto) (0.1-1.2) % Neut # (Auto) (1.56-6.13) K/mm3 Lymph # (Auto) (1.18-3.74) K/mm3 [place] # (Auto) (0.24-0.36) K/mm3 Eos # (Auto) (0.04-0.36) K/mm3 Baso # (Auto) (0.01-0.08) K/mm3 Sodium (136-145) mEq/L Potassium (3.5-5.1) mEq/L Chloride (98-107) mEq/L Carbon Dioxide (21-32) mEq/L Anion Gap (5-15) BUN (7-18) mg/dL Creatinine (0.55-1.02) mg/dL Est Cr Clr Drug Dosing mL/min Estimated GFR (MDRD) (>60) mL/min BUN/Creatinine Ratio (14-18) Glucose (83-115) mg/dL POC Glucose 138 H (83-110) mg/dL Hemoglobin A1c 8.40 H (4.50-6.20) % Calcium (8.5-10.1) mg/dL Magnesium (1.8-2.4) mg/dl Vitamin B12 368 (193-986) pg/ml Folate 19.2 (8.6-58.9) ng/mL TSH 3rd Generation (0.358-3.74) uIU/mL Urine Color (Yellow) Urine Appearance (Clear) Urine pH (5.0-8.0) Ur Specific [place] (1.005-1.030) Urine Protein (Negative) Urine Glucose (UA) (Negative) Urine Ketones (Negative) Urine Occult Blood (Negative) Urine Nitrite (Negative) Urine Bilirubin (Negative) Urine Urobilinogen (0.2-1.0) Ur Leukocyte Esterase (Negative) Urine RBC (0-5) /hpf Urine WBC (0-5) /hpf Ur Epithelial Cells (0-5) /hpf Urine Bacteria (FEW) /hpf Urine Mucus (FEW) /hpf H. pylori IgG Antibody (NEGATIVE) Med Orders - Current: Current Medications Amitriptyline HCl (Elavil) 25 mg PO BEDTIME [facility] Last Admin: 12/30/16 21:53 Dose: 25 mg Enalapril Maleate (Vasotec) 10 mg PO BID [facility] Last Admin: 12/31/16 10:12 Dose: 10 mg Ceftriaxone Sodium 1 gm/ (Sodium Chloride) 100 mls @ 200 mls/hr IV Q24H [facility] Last Admin: 12/30/16 21:53 Dose: 200 mls/hr Sodium Chloride (Sodium Chloride 0.45%) 1,000 mls @ 75 mls/hr IV ASDIRECTED [facility] Last Admin: 12/30/16 21:53 Dose: 75 mls/hr Insulin Aspart (Novolog) 0 unit SUBCUT QIDACANDBED [facility] PRN Reason: Protocol Last Admin: 12/31/16 06:38 Dose: Not Given Pantoprazole Sodium (Protonix Iv) 40 mg IVPUSH Q12H [facility] Last Admin: 12/31/16 04:40 Dose: 40 mg Rosuvastatin Calcium (Crestor) 10 mg PO DAILY [facility] Last Admin: 12/31/16 10:12 Dose: 10 mg Discontinued Medications Famotidine (Pepcid) 20 mg PO ONETIME ONE Stop: 12/30/16 16:14 Last Admin: 12/30/16 16:24 Dose: 20 mg Ondansetron HCl (Zofran) 4 mg IVPUSH ONETIME ONE Stop: 12/30/16 16:14 Last Admin: 12/30/16 16:25 Dose: 4 mg Pantoprazole Sodium (Protonix Iv) 40 mg IVPUSH ONETIME ONE Stop: 12/30/16 16:14 Last Admin: 12/30/16 16:28 Dose: 40 mg - Exam Quality Assessment: DVT prophylaxis General: alert, oriented, cooperative, no acute distress HEENT: Pupils equal, Pupils reactive, EOMI Neck: supple, trachea midline Lungs: Normal respiratory effort Cardiovascular: Regular Rate, Regular Rhythm Abdomen: bowel sounds present, soft, tenderness (epigastric) (Female) Exam: Deferred Back Exam: normal inspection Extremities: normal pulses Skin: warm Neurological: no new focal deficit, normal gait, normal speech Psy/Mental Status: alert, normal affect, normal mood - Problem List Review Problem List Initiated/Reviewed/Updated: Yes - My Orders Last 24 Hours: My Active Orders 12/30/16 18:08 Vital Signs [RC] Q4HR 12/30/16 18:10 Activity as Tolerated [RC] .Routine Consult to Physician [CONS] Routine 12/30/16 18:11 Antiembolic Devices [RC] 10,22 Notify Provider Consults [RC] ASDIRECTED PETRA Hose [Antiembolic Hose] [OM.PC] Routine 12/30/16 20:00 cefTRIAXone [Rocephin] 1 gm Sodium Chloride 0.9% [Normal Saline] 100 ml IV Q24H 12/30/16 20:02 Blood Glucose Check, Bedside [RC] QIDACANDBED 12/30/16 20:15 Sodium Chloride 0.45% 1,000 ml IV ASDIRECTED 12/30/16 21:00 Amitriptyline [Elavil] 25 mg PO BEDTIME 12/30/16 22:00 Insulin Aspart [NovoLOG] See Protocol SUBCUT QIDACANDBED 12/30/16 22:30 CULTURE URINE [RM] Routine 12/30/16 Dinner Clear Liquid Diet [DIET] 12/31/16 00:17 Resuscitation Status Routine 12/31/16 04:00 Pantoprazole [Protonix IV] 40 mg IVPUSH Q12H 12/31/16 09:00 Consult to Passenger Service Representative [Consult to Diabetic Nurse Specialist] [CONS] Routine Consult to Occupational Therapy [OT Evaluation and Treatment] [CONS] Routine Consult to Physical Therapy [PT Evaluation and Treatment] [CONS] Routine Enalapril [Vasotec] 10 mg PO BID Rosuvastatin [Crestor] 10 mg PO DAILY 12/31/16 10:00 Consult to Society Editor [CONS] Routine 12/31/16 10:31 Consult to Obstetrician And Gynaecologist [CONS] Routine 12/31/16 11:53 MEDICAL OFFICE PROFESSIONAL INSTRUCTOR Evaluation and Treatment [CONS] Routine 01/01/17 05:00 BASIC METABOLIC PANEL,BMP [CHEM] DAILY CBC WITH AUTO DIFF [HEME] DAILY MG [MAGNESIUM] [CHEM] DAILY 01/02/17 05:00 BASIC METABOLIC PANEL,BMP [CHEM] DAILY CBC WITH AUTO DIFF [HEME] DAILY - Plan Plan:: Impression: UGI bleed, stable Diabetes mellitus Dementia, unspecified Plan: IVF Clear liquids diet Home meds Novolog SS Diabetic teaching Protonix IV DVT prophylaxis EGD, 01/01/17.
[2016-12-31] MEDS: Sodium Chloride 0.45% 1,000 ML IV SCH (12:40)
[2016-12-31] MEDS: cefTRIAXone 1 GM in Sodium Chloride 0.9% 100 ML IV SCH (20:14)
[2016-12-31] MEDS: Amitriptyline 25 MG Tab PO SCH (20:15)
[2017-01-01] MEDS: Sodium Chloride 0.45% 1,000 ML IV SCH (02:27)
[2017-01-01] MEDS: Pantoprazole 40 MG Vial IVPUSH SCH ×2 (03:15→18:00)
[2017-01-01] MEDS: Insulin Aspart 100 Units/ML 3 ML Pen SUBCUT SCH ×4 (06:19→22:00)
--- NOTE | 2017-01-01 08:47 | PCM.PREANE ---
Preanesthetic Assessment - Anesthesia/Transfusion/Family Hx Anesthesia History: Prior Anesthesia Without Reaction Transfusion History: Prior Transfusion Without Reaction - Physical Assessment Pulse: 73 O2 Sat by Pulse Oximetry: 96 Respiratory Rate: 16 Blood Pressure: 108/76 Temperature: 36.7 C Vital Signs: Last Vital Signs Temp 36.7 C 01/01/17 07:27 Pulse 73 01/01/17 07:27 Resp 16 01/01/17 07:27 BP 108/76 01/01/17 07:27 Pulse Ox 96 01/01/17 07:27 Height: 1.6 m Weight: 75.75 kg - Lab Values: Laboratory Last Values WBC 7.71 K/mm3 (3.98-10.04) 01/01/17 06:12 RBC 2.86 M/mm3 (3.98-5.22) L 01/01/17 06:12 Hgb 8.6 gm/L (11.2-15.7) L 01/01/17 06:12 Hct 27.0 % (34.1-44.9) L 01/01/17 06:12 MCV 94.4 fl (79.4-94.8) 01/01/17 06:12 MCH 30.1 pg (25.6-32.2) 01/01/17 06:12 MCHC 31.9 g/dl (32.2-35.5) L 01/01/17 06:12 RDW Std Deviation 46.5 fL (36.4-46.3) H 01/01/17 06:12 Plt Count 152 K/mm3 (182-369) L 01/01/17 06:12 MPV 12.3 fl (9.4-12.3) 01/01/17 06:12 Neut % (Auto) 58.6 % (34.0-71.1) 01/01/17 06:12 Lymph % (Auto) 27.9 % (19.3-51.7) 01/01/17 06:12 [place] % (Auto) 8.6 % (4.7-12.5) 01/01/17 06:12 Eos % (Auto) 4.0 (0.7-5.8) 01/01/17 06:12 Baso % (Auto) 0.5 % (0.1-1.2) 01/01/17 06:12 Neut # (Auto) 4.52 K/mm3 (1.56-6.13) 01/01/17 06:12 Lymph # (Auto) 2.15 K/mm3 (1.18-3.74) 01/01/17 06:12 [place] # (Auto) 0.66 K/mm3 (0.24-0.36) H 01/01/17 06:12 Eos # (Auto) 0.31 K/mm3 (0.04-0.36) 01/01/17 06:12 Baso # (Auto) 0.04 K/mm3 (0.01-0.08) 01/01/17 06:12 PT 11.6 SECONDS (8.0-13.0) 12/30/16 16:04 INR 1.06 12/30/16 16:04 APTT 23 SECONDS (22-36) 12/30/16 16:04 Sodium 142 mEq/L (136-145) 01/01/17 06:12 Potassium 3.7 mEq/L (3.5-5.1) 01/01/17 06:12 Chloride 107 mEq/L (98-107) 01/01/17 06:12 Carbon Dioxide 27 mEq/L (21-32) 01/01/17 06:12 Anion Gap 11.7 (5-15) 01/01/17 06:12 BUN 14 mg/dL (7-18) 01/01/17 06:12 Creatinine 0.9 mg/dL (0.55-1.02) 01/01/17 06:12 Est Cr Clr Drug Dosing 44.68 mL/min 01/01/17 06:12 Estimated GFR (MDRD) > 60 mL/min (>60) 01/01/17 06:12 BUN/Creatinine Ratio 15.6 (14-18) 01/01/17 06:12 Glucose 124 mg/dL (83-115) H 01/01/17 06:12 POC Glucose 117 mg/dL (83-110) H 01/01/17 06:18 Hemoglobin A1c 8.40 % (4.50-6.20) H 12/31/16 06:12 Calcium 8.1 mg/dL (8.5-10.1) L 01/01/17 06:12 Magnesium 2.0 mg/dl (1.8-2.4) 01/01/17 06:12 Vitamin B12 368 pg/ml (193-986) 12/31/16 06:12 Folate 19.2 ng/mL (8.6-58.9) 12/31/16 06:12 TSH 3rd Generation 1.143 uIU/mL (0.358-3.74) 12/31/16 06:12 Urine Color Yellow (Yellow) 12/30/16 22:30 Urine Appearance Clear (Clear) 12/30/16 22:30 Urine pH 6.0 (5.0-8.0) 12/30/16 22:30 Ur Specific [place] 1.015 (1.005-1.030) 12/30/16 22:30 Urine Protein Negative (Negative) 12/30/16 22:30 Urine Glucose (UA) Negative (Negative) 12/30/16 22:30 Urine Ketones Negative (Negative) 12/30/16 22:30 Urine Occult Blood Negative (Negative) 12/30/16 22:30 Urine Nitrite Negative (Negative) 12/30/16 22:30 Urine Bilirubin Negative (Negative) 12/30/16 22:30 Urine Urobilinogen 0.2 (0.2-1.0) 12/30/16 22:30 Ur Leukocyte Esterase 1+ (Negative) H 12/30/16 22:30 Urine RBC Not seen /hpf (0-5) 12/30/16 22:30 Urine WBC 5-10 /hpf (0-5) H 12/30/16 22:30 Ur Epithelial Cells 0-5 /hpf (0-5) 12/30/16 22:30 Urine Bacteria Few /hpf (FEW) 12/30/16 22:30 Urine Mucus Moderate /hpf (FEW) H 12/30/16 22:30 H. 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: Musculoskeletal History: Reports: Fibromyalgia Hematologic History: Reports: Blood transfusion(s) Other Hematologic History: Post op at [place] - Infectious Disease History Infectious Disease History: Reports: Chicken pox, Shingles - Past Surgical History GI Surgical History: Reports: Other (see below) Other GI Surgeries/Procedures: surgery on colon 13 years ago for pre cancer in [place] - SUBSTANCE USE Smoking Status *Q: Never Smoker Recreational Drug Use History: No - HOME MEDS Home Medications: Home Meds Alendronate Sodium [Alendronate] 70 mg PO WEEKLY 12/30/16 [History] Amitriptyline [Elavil] 25 mg PO BEDTIME 12/30/16 [History] Calcium Carbonate 1,200 mg PO DAILY 12/30/16 [History] Docusate Sodium 100 mg PO BEDTIME 12/30/16 [History] Enalapril Maleate 20 mg PO DAILY 12/30/16 [History] Ibuprofen 600 mg PO Q4H PRN 12/30/16 [History] Multivits-Min/Iron/FA/Lutein [Centrum Silver Women Tablet] 1 each PO DAILY 12/30 [History] Rivaroxaban [Xarelto] 20 mg PO DAILY 12/30/16 [History] Sertraline HCl 100 mg PO DAILY 12/30/16 [History] atorvaSTATin Calcium [Atorvastatin Calcium] 40 mg PO DAILY 12/30/16 [History] - CURRENT (IN HOUSE) MEDS Current Meds: Current Medications Amitriptyline HCl (Elavil) 25 mg PO BEDTIME [facility] Last Admin: 12/31/16 20:15 Dose: 25 mg Enalapril Maleate (Vasotec) 10 mg PO BID [facility] Last Admin: 12/31/16 20:14 Dose: 10 mg Ceftriaxone Sodium 1 gm/ (Sodium Chloride) 100 mls @ 200 mls/hr IV Q24H [facility] Last Admin: 12/31/16 20:14 Dose: 200 mls/hr Sodium Chloride (Sodium Chloride 0.45%) 1,000 mls @ 75 mls/hr IV ASDIRECTED [facility] Last Admin: 01/01/17 02:27 Dose: 75 mls/hr Insulin Aspart (Novolog) 0 unit SUBCUT QIDACANDBED [facility] PRN Reason: Protocol Last Admin: 01/01/17 06:19 Dose: Not Given Pantoprazole Sodium (Protonix Iv) 40 mg IVPUSH Q12H [facility] Last Admin: 01/01/17 03:15 Dose: 40 mg Rosuvastatin Calcium (Crestor) 10 mg PO DAILY [facility] Last Admin: 12/31/16 10:12 Dose: 10 mg Discontinued Medications Famotidine (Pepcid) 20 mg PO ONETIME ONE Stop: 12/30/16 16:14 Last Admin: 12/30/16 16:24 Dose: 20 mg Ondansetron HCl (Zofran) 4 mg IVPUSH ONETIME ONE Stop: 12/30/16 16:14 Last Admin: 12/30/16 16:25 Dose: 4 mg Pantoprazole Sodium (Protonix Iv) 40 mg IVPUSH ONETIME ONE Stop: 12/30/16 16:14 Last Admin: 12/30/16 16:28 Dose: 40 mg Preanesthetic Assessment - ANESTHESIA/TRANSFUSION/FAMILY HX Anesthesia/Transfusion History: Prior Anesthesia, Prior Transfusion Type of Anesthesia Reaction: Denies: Allergy, Anesthesia Awareness, Excessive Somnolence, Excessive Nausea/Vomiting, Excessive Itching, Excessive Shivering, Malignant Hyperthermia, Malignant Hyperthermia, Family History, Pseudocholinesterase Deficiency, Pseudocholinesterase Deficiency, Family History of, Urinary Retention, Unknown, Other (see below) Family History of Anesthesia Reaction: No Intubation History: Unknown - REVIEW OF SYSTEMS Constitutional: Reports: no symptoms 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 SPECIALIST: Reports: no symptoms Respiratory: Reports: no symptoms Cardiovascular: Reports: blood pressure problem (history of CHF per chart.), lightheadedness (noted with hematoemesis on admission) Other: Reports: None (CKD III), Easy Bleeding (patient had been on xaralto for DVT.), Easy Bruising, Diabetes (0618 SG=[id number]), Sinus Problem (seasonal allergies noted), Depression (history of some dementia) - PHYSICAL ASSESSMENT HR: 73 O2 Sat by Pulse Oximetry: 96 RR: 16 BP: 108/76 Temp: 36.7 C Vital Signs: Last Vital Signs Temp 36.7 C 01/01/17 07:27 Pulse 73 01/01/17 07:27 Resp 16 01/01/17 07:27 BP 108/76 01/01/17 07:27 Pulse Ox 96 01/01/17 07:27 Height: 1.6 m Weight: 75.75 kg NPO Status Date: 01/01/17 NPO Status Time: 12:00 (clear liquids) ASA Class: 2 Mental Status: Alert & Oriented x3 Airway Class: Mallampati = 2 Dentition: Reports: Normal Dentition, Caries Thyro-Mental Finger Breadths: 3 Mouth Opening Finger Breadths: 3 ROM/Head Extension: Full Respiratory Status: lungs clear to auscultation bilaterally Cardiovascular Status: regular rate & rhythm, normal S1, S2, no murmur, blood pressure WNL - LAB Values: Laboratory Last Values WBC 7.71 K/mm3 (3.98-10.04) 01/01/17 06:12 RBC 2.86 M/mm3 (3.98-5.22) L 01/01/17 06:12 Hgb 8.6 gm/L (11.2-15.7) L 01/01/17 06:12 Hct 27.0 % (34.1-44.9) L 01/01/17 06:12 MCV 94.4 fl (79.4-94.8) 01/01/17 06:12 MCH 30.1 pg (25.6-32.2) 01/01/17 06:12 MCHC 31.9 g/dl (32.2-35.5) L 01/01/17 06:12 RDW Std Deviation 46.5 fL (36.4-46.3) H 01/01/17 06:12 Plt Count 152 K/mm3 (182-369) L 01/01/17 06:12 MPV 12.3 fl (9.4-12.3) 01/01/17 06:12 Neut % (Auto) 58.6 % (34.0-71.1) 01/01/17 06:12 Lymph % (Auto) 27.9 % (19.3-51.7) 01/01/17 06:12 [place] % (Auto) 8.6 % (4.7-12.5) 01/01/17 06:12 Eos % (Auto) 4.0 (0.7-5.8) 01/01/17 06:12 Baso % (Auto) 0.5 % (0.1-1.2) 01/01/17 06:12 Neut # (Auto) 4.52 K/mm3 (1.56-6.13) 01/01/17 06:12 Lymph # (Auto) 2.15 K/mm3 (1.18-3.74) 01/01/17 06:12 [place] # (Auto) 0.66 K/mm3 (0.24-0.36) H 01/01/17 06:12 Eos # (Auto) 0.31 K/mm3 (0.04-0.36) 01/01/17 06:12 Baso # (Auto) 0.04 K/mm3 (0.01-0.08) 01/01/17 06:12 PT 11.6 SECONDS (8.0-13.0) 12/30/16 16:04 INR 1.06 12/30/16 16:04 APTT 23 SECONDS (22-36) 12/30/16 16:04 Sodium 142 mEq/L (136-145) 01/01/17 06:12 Potassium 3.7 mEq/L (3.5-5.1) 01/01/17 06:12 Chloride 107 mEq/L (98-107) 01/01/17 06:12 Carbon Dioxide 27 mEq/L (21-32) 01/01/17 06:12 Anion Gap 11.7 (5-15) 01/01/17 06:12 BUN 14 mg/dL (7-18) 01/01/17 06:12 Creatinine 0.9 mg/dL (0.55-1.02) 01/01/17 06:12 Est Cr Clr Drug Dosing 44.68 mL/min 01/01/17 06:12 Estimated GFR (MDRD) > 60 mL/min (>60) 01/01/17 06:12 BUN/Creatinine Ratio 15.6 (14-18) 01/01/17 06:12 Glucose 124 mg/dL (83-115) H 01/01/17 06:12 POC Glucose 117 mg/dL (83-110) H 01/01/17 06:18 Hemoglobin A1c 8.40 % (4.50-6.20) H 12/31/16 06:12 Calcium 8.1 mg/dL (8.5-10.1) L 01/01/17 06:12 Magnesium 2.0 mg/dl (1.8-2.4) 01/01/17 06:12 Vitamin B12 368 pg/ml (193-986) 12/31/16 06:12 Folate 19.2 ng/mL (8.6-58.9) 12/31/16 06:12 TSH 3rd Generation 1.143 uIU/mL (0.358-3.74) 12/31/16 06:12 Urine Color Yellow (Yellow) 12/30/16 22:30 Urine Appearance Clear (Clear) 12/30/16 22:30 Urine pH 6.0 (5.0-8.0) 12/30/16 22:30 Ur Specific [place] 1.015 (1.005-1.030) 12/30/16 22:30 Urine Protein Negative (Negative) 12/30/16 22:30 Urine Glucose (UA) Negative (Negative) 12/30/16 22:30 Urine Ketones Negative (Negative) 12/30/16 22:30 Urine Occult Blood Negative (Negative) 12/30/16 22:30 Urine Nitrite Negative (Negative) 12/30/16 22:30 Urine Bilirubin Negative (Negative) 12/30/16 22:30 Urine Urobilinogen 0.2 (0.2-1.0) 12/30/16 22:30 Ur Leukocyte Esterase 1+ (Negative) H 12/30/16 22:30 Urine RBC Not seen /hpf (0-5) 12/30/16 22:30 Urine WBC 5-10 /hpf (0-5) H 12/30/16 22:30 Ur Epithelial Cells 0-5 /hpf (0-5) 12/30/16 22:30 Urine Bacteria Few /hpf (FEW) 12/30/16 22:30 Urine Mucus Moderate /hpf (FEW) H 12/30/16 22:30 H. pylori IgG Antibody Negative (NEGATIVE) 12/30/16 19:52 Reviewed and noted - IMAGING/EKG Impressions: EKG: sinus tachycardia, borderline left axis deviation - ALLERGIES Allergies/Adverse Reactions: Allergies Allergy/AdvReac Type Severity Reaction Status Date / Time No Known Allergies Allergy Verified 12/30/16 14:43 - ANESTHESIA PLAN Preop Beta Delmy: No Anesthesia Type Planned: MAC - ACKNOWLEDGEMENTS Pt an Appropriate Candidate for the Planned Anesthesia: Yes Alternatives and Risks of Anesthesia Discussed w Pt/Guardian: Yes Pt/Guardian Understands and Agrees with Anesthesia Plan: Yes
[2017-01-01] MEDS: Rosuvastatin 10 MG Tab PO SCH (08:52)
--- NOTE | 2017-01-01 10:35 | PCM.PN ---
<Justina Sanders M - Last Filed: 01/01/17 13:19> - General Info Admission Dx/Problem (Free Text): GI bleed Visiting with patient this morning. She is doing well from physical standpoint; no pain today. Asked her if Dr. Gamez was into see her this morning, she states "who is Dr. Gamez, I don't know him". I review with her, Dr. Gamez is the surgeon who has been meeting with her daily since admission to discuss her GI bleed and will be doing upper endoscopy later today". "The female doctor with the pretty purple hat that you liked yesterday"-- she states "Oh that's right". She did not recall she was to have an EGD today nor that she has had GI bleed. Nursing reported family has concerns about her driving and getting "lost in the parking lot" at times and with significant concerns with her memory. ST did cognitive evaluation yesterday with impairments noted. Functional Status: Reports: pain controlled, ambulating, urinating. Denies: tolerating diet (NPO for EGD later today; tolerated clear liquids yesterday), new symptoms - Review of Systems General: Reports: No Symptoms HEENT: Reports: no symptoms Pulmonary: Reports: no symptoms Cardiovascular: Reports: No Symptoms Gastrointestinal: Reports: No symptoms. Denies: Abdominal pain, Diarrhea, Nausea, Vomiting Genitourinary: Reports: no symptoms Musculoskeletal: Reports: no symptoms Skin: Reports: no symptoms Neurological: Reports: No Symptoms Psychiatric: Reports: no symptoms - Patient Data Vitals - most recent: Last Vital Signs Temp 98.8 F 01/01/17 11:27 Pulse 81 01/01/17 11:27 Resp 16 01/01/17 11:27 BP 149/78 H 01/01/17 11:27 Pulse Ox 98 01/01/17 11:27 I&O - last 24 hours: Intake & Output 12/31/16 01/01/17 01/01/17 22:59 06:59 14:59 Intake Total 2577 2260 560 Output Total 1500 1700 Balance 1077 560 560 Lab Results last 24 hrs: Laboratory Results - last 24 hr 12/31/16 12/31/16 01/01/17 Range/Units 17:36 20:19 06:12 WBC (3.98-10.04) K/mm3 RBC (3.98-5.22) M/mm3 Hgb (11.2-15.7) gm/L Hct (34.1-44.9) % MCV (79.4-94.8) fl MCH (25.6-32.2) pg MCHC (32.2-35.5) g/dl RDW Std Deviation (36.4-46.3) fL Plt Count (182-369) K/mm3 MPV (9.4-12.3) fl Neut % (Auto) (34.0-71.1) % Lymph % (Auto) (19.3-51.7) % Lyman % (Auto) (4.7-12.5) % Eos % (Auto) (0.7-5.8) Baso % (Auto) (0.1-1.2) % Neut # (Auto) (1.56-6.13) K/mm3 Lymph # (Auto) (1.18-3.74) K/mm3 Lyman # (Auto) (0.24-0.36) K/mm3 Eos # (Auto) (0.04-0.36) K/mm3 Baso # (Auto) (0.01-0.08) K/mm3 Sodium 142 (136-145) mEq/L Potassium 3.7 (3.5-5.1) mEq/L Chloride 107 (98-107) mEq/L Carbon Dioxide 27 (21-32) mEq/L Anion Gap 11.7 (5-15) BUN 14 (7-18) mg/dL Creatinine 0.9 (0.55-1.02) mg/dL Est Cr Clr Drug Dosing 44.68 mL/min Estimated GFR (MDRD) > 60 (>60) mL/min BUN/Creatinine Ratio 15.6 (14-18) Glucose 124 H (83-115) mg/dL POC Glucose 93 142 H (83-110) mg/dL Calcium 8.1 L (8.5-10.1) mg/dL Magnesium 2.0 (1.8-2.4) mg/dl 01/01/17 01/01/17 01/01/17 Range/Units 06:12 06:18 11:40 WBC 7.71 (3.98-10.04) K/mm3 RBC 2.86 L (3.98-5.22) M/mm3 Hgb 8.6 L 9.1 L (11.2-15.7) gm/L Hct 27.0 L (34.1-44.9) % MCV 94.4 (79.4-94.8) fl MCH 30.1 (25.6-32.2) pg MCHC 31.9 L (32.2-35.5) g/dl RDW Std Deviation 46.5 H (36.4-46.3) fL Plt Count 152 L (182-369) K/mm3 MPV 12.3 (9.4-12.3) fl Neut % (Auto) 58.6 (34.0-71.1) % Lymph % (Auto) 27.9 (19.3-51.7) % Lyman % (Auto) 8.6 (4.7-12.5) % Eos % (Auto) 4.0 (0.7-5.8) Baso % (Auto) 0.5 (0.1-1.2) % Neut # (Auto) 4.52 (1.56-6.13) K/mm3 Lymph # (Auto) 2.15 (1.18-3.74) K/mm3 Lyman # (Auto) 0.66 H (0.24-0.36) K/mm3 Eos # (Auto) 0.31 (0.04-0.36) K/mm3 Baso # (Auto) 0.04 (0.01-0.08) K/mm3 Sodium (136-145) mEq/L Potassium (3.5-5.1) mEq/L Chloride (98-107) mEq/L Carbon Dioxide (21-32) mEq/L Anion Gap (5-15) BUN (7-18) mg/dL Creatinine (0.55-1.02) mg/dL Est Cr Clr Drug Dosing mL/min Estimated GFR (MDRD) (>60) mL/min BUN/Creatinine Ratio (14-18) Glucose (83-115) mg/dL POC Glucose 117 H (83-110) mg/dL Calcium (8.5-10.1) mg/dL Magnesium (1.8-2.4) mg/dl 01/01/17 Range/Units 12:21 WBC (3.98-10.04) K/mm3 RBC (3.98-5.22) M/mm3 Hgb (11.2-15.7) gm/L Hct (34.1-44.9) % MCV (79.4-94.8) fl MCH (25.6-32.2) pg MCHC (32.2-35.5) g/dl RDW Std Deviation (36.4-46.3) fL Plt Count (182-369) K/mm3 MPV (9.4-12.3) fl Neut % (Auto) (34.0-71.1) % Lymph % (Auto) (19.3-51.7) % Lyman % (Auto) (4.7-12.5) % Eos % (Auto) (0.7-5.8) Baso % (Auto) (0.1-1.2) % Neut # (Auto) (1.56-6.13) K/mm3 Lymph # (Auto) (1.18-3.74) K/mm3 Lyman # (Auto) (0.24-0.36) K/mm3 Eos # (Auto) (0.04-0.36) K/mm3 Baso # (Auto) (0.01-0.08) K/mm3 Sodium (136-145) mEq/L Potassium (3.5-5.1) mEq/L Chloride (98-107) mEq/L Carbon Dioxide (21-32) mEq/L Anion Gap (5-15) BUN (7-18) mg/dL Creatinine (0.55-1.02) mg/dL Est Cr Clr Drug Dosing mL/min Estimated GFR (MDRD) (>60) mL/min BUN/Creatinine Ratio (14-18) Glucose (83-115) mg/dL POC Glucose 216 H (83-110) mg/dL Calcium (8.5-10.1) mg/dL Magnesium (1.8-2.4) mg/dl Keagan Results last 24 hrs: Microbiology 12/30/16 22:30 Urine Culture - Final Urine, Clean Catch MIXED SHANDA SUGGESTIVE OF CONTAMINATION. Med Orders - Current: Current Medications Amitriptyline HCl (Elavil) 25 mg PO BEDTIME [facility] Last Admin: 12/31/16 20:15 Dose: 25 mg Enalapril Maleate (Vasotec) 10 mg PO BID [facility] Last Admin: 01/01/17 08:48 Dose: 10 mg Ceftriaxone Sodium 1 gm/ (Sodium Chloride) 100 mls @ 200 mls/hr IV Q24H [facility] Last Admin: 12/31/16 20:14 Dose: 200 mls/hr Sodium Chloride (Sodium Chloride 0.45%) 1,000 mls @ 75 mls/hr IV ASDIRECTED [facility] Last Admin: 01/01/17 02:27 Dose: 75 mls/hr Insulin Aspart (Novolog) 0 unit SUBCUT QIDACANDBED [facility] PRN Reason: Protocol Last Admin: 01/01/17 12:24 Dose: 2 units Pantoprazole Sodium (Protonix Iv) 40 mg IVPUSH Q12H [facility] Last Admin: 01/01/17 03:15 Dose: 40 mg Rosuvastatin Calcium (Crestor) 10 mg PO DAILY [facility] Last Admin: 01/01/17 08:52 Dose: 10 mg Discontinued Medications Famotidine (Pepcid) 20 mg PO ONETIME ONE Stop: 12/30/16 16:14 Last Admin: 12/30/16 16:24 Dose: 20 mg Ondansetron HCl (Zofran) 4 mg IVPUSH ONETIME ONE Stop: 12/30/16 16:14 Last Admin: 12/30/16 16:25 Dose: 4 mg Pantoprazole Sodium (Protonix Iv) 40 mg IVPUSH ONETIME ONE Stop: 12/30/16 16:14 Last Admin: 12/30/16 16:28 Dose: 40 mg - Exam Quality Assessment: DVT prophylaxis (Teds and SCD's) General: alert, oriented, cooperative, no acute distress HEENT: Pupils equal, Pupils reactive, EOMI, Mucous membr. moist/pink Neck: supple Lungs: Clear to auscultation, Normal respiratory effort Cardiovascular: Regular Rate, Regular Rhythm, No Murmurs Abdomen: bowel sounds present, soft, no tenderness, no distension (Female) Exam: Deferred Back Exam: normal inspection Extremities: no edema, no calf tenderness Peripheral Pulses: 1+: dorsalis pedis (L), dorsalis pedis (R) Skin: warm, dry, intact Neurological: no new focal deficit Psy/Mental Status: alert, normal affect, normal mood - Problem List & Annotations (1) Gastric hemorrhage SNOMED Code(s): 86719234 Code(s): K92.2 - GASTROINTESTINAL HEMORRHAGE, UNSPECIFIED Status: Acute Priority: High Current Visit: Yes (2) Anemia SNOMED Code(s): 526797212 Code(s): D64.9 - ANEMIA, UNSPECIFIED Status: Acute Priority: High Current Visit: Yes Qualifiers: Anemia type: unspecified type Qualified Code(s): D64.9 - Anemia, unspecified (3) Hyperglycemia due to type 2 diabetes mellitus SNOMED Code(s): 013868731400358, 214865050688806 Code(s): E11.65 - TYPE 2 DIABETES MELLITUS WITH HYPERGLYCEMIA Status: Acute Priority: High Current Visit: Yes Qualifiers: Diabetes mellitus long-term insulin use: without terminologist use Qualified Code(s): E11.65 - Type 2 diabetes mellitus with hyperglycemia (4) Memory loss SNOMED Code(s): 82568814 Code(s): R41.3 - OTHER AMNESIA Status: Acute Priority: High Current Visit: Yes Annotation/Comment:: acute on chronic - Problem List Review Problem List Initiated/Reviewed/Updated: Yes - My Orders Last 24 Hours: My Active Orders 01/01/17 10:42 Antiembolic Devices [RC] PER UNIT ROUTINE SCD [Sequential Compression Device] [OM.PC] Routine - Plan Plan:: As above Initial hgb this am down to 8.6, recheck up to 9.1 today. No need for transfusion at this time. -NPO after breakfast of clear liquid today for EGD later today with Dr. Gamez -CDE; likely home on oral agent -Significant cognitive impairment on cog eval; recommend assisted living placement at this time for safety vs 24hr care. Will recommend no driving due to reports from family members she is getting lost in parking lots while driving. Consider Neurology eval on discharge. -Ambulate in hallways TID Plan for EGD later this afternoon with Dr. Gamez DC planning ongoing, pending findings of EGD later today. <Adri Duff - Last Filed: 01/02/17 14:14> - General Info Date of Service: 01/01/17 - Patient Data Vitals - most recent: Last Vital Signs Temp 36.7 C 01/01/17 09:03 Pulse 73 01/01/17 09:03 Resp 16 01/01/17 09:03 BP 108/76 01/01/17 09:03 Pulse Ox 96 01/01/17 09:03 Weight - most recent: 75.75 kg I&O - last 24 hours: Intake & Output 12/31/16 01/01/17 01/01/17 22:59 06:59 14:59 Intake Total 2577 2260 Output Total 1500 1700 Balance 1077 560 Lab Results last 24 hrs: Laboratory Results - last 24 hr 12/31/16 12/31/16 12/31/16 Range/Units 12:38 17:36 20:19 WBC (3.98-10.04) K/mm3 RBC (3.98-5.22) M/mm3 Hgb (11.2-15.7) gm/L Hct (34.1-44.9) % MCV (79.4-94.8) fl MCH (25.6-32.2) pg MCHC (32.2-35.5) g/dl RDW Std Deviation (36.4-46.3) fL Plt Count (182-369) K/mm3 MPV (9.4-12.3) fl Neut % (Auto) (34.0-71.1) % Lymph % (Auto) (19.3-51.7) % Lyman % (Auto) (4.7-12.5) % Eos % (Auto) (0.7-5.8) Baso % (Auto) (0.1-1.2) % Neut # (Auto) (1.56-6.13) K/mm3 Lymph # (Auto) (1.18-3.74) K/mm3 Lyman # (Auto) (0.24-0.36) K/mm3 Eos # (Auto) (0.04-0.36) K/mm3 Baso # (Auto) (0.01-0.08) K/mm3 Sodium (136-145) mEq/L Potassium (3.5-5.1) mEq/L Chloride (98-107) mEq/L Carbon Dioxide (21-32) mEq/L Anion Gap (5-15) BUN (7-18) mg/dL Creatinine (0.55-1.02) mg/dL Est Cr Clr Drug Dosing mL/min Estimated GFR (MDRD) (>60) mL/min BUN/Creatinine Ratio (14-18) Glucose (83-115) mg/dL POC Glucose 103 93 142 H (83-110) mg/dL Calcium (8.5-10.1) mg/dL Magnesium (1.8-2.4) mg/dl 01/01/17 01/01/17 01/01/17 Range/Units 06:12 06:12 06:18 WBC 7.71 (3.98-10.04) K/mm3 RBC 2.86 L (3.98-5.22) M/mm3 Hgb 8.6 L (11.2-15.7) gm/L Hct 27.0 L (34.1-44.9) % MCV 94.4 (79.4-94.8) fl MCH 30.1 (25.6-32.2) pg MCHC 31.9 L (32.2-35.5) g/dl RDW Std Deviation 46.5 H (36.4-46.3) fL Plt Count 152 L (182-369) K/mm3 MPV 12.3 (9.4-12.3) fl Neut % (Auto) 58.6 (34.0-71.1) % Lymph % (Auto) 27.9 (19.3-51.7) % Lyman % (Auto) 8.6 (4.7-12.5) % Eos % (Auto) 4.0 (0.7-5.8) Baso % (Auto) 0.5 (0.1-1.2) % Neut # (Auto) 4.52 (1.56-6.13) K/mm3 Lymph # (Auto) 2.15 (1.18-3.74) K/mm3 Lyman # (Auto) 0.66 H (0.24-0.36) K/mm3 Eos # (Auto) 0.31 (0.04-0.36) K/mm3 Baso # (Auto) 0.04 (0.01-0.08) K/mm3 Sodium 142 (136-145) mEq/L Potassium 3.7 (3.5-5.1) mEq/L Chloride 107 (98-107) mEq/L Carbon Dioxide 27 (21-32) mEq/L Anion Gap 11.7 (5-15) BUN 14 (7-18) mg/dL Creatinine 0.9 (0.55-1.02) mg/dL Est Cr Clr Drug Dosing 44.68 mL/min Estimated GFR (MDRD) > 60 (>60) mL/min BUN/Creatinine Ratio 15.6 (14-18) Glucose 124 H (83-115) mg/dL POC Glucose 117 H (83-110) mg/dL Calcium 8.1 L (8.5-10.1) mg/dL Magnesium 2.0 (1.8-2.4) mg/dl Keagan Results last 24 hrs: Microbiology 12/30/16 22:30 Urine Culture - Final Urine, Clean Catch MIXED SHANDA SUGGESTIVE OF CONTAMINATION. Med Orders - Current: Current Medications Amitriptyline HCl (Elavil) 25 mg PO BEDTIME [facility] Last Admin: 12/31/16 20:15 Dose: 25 mg Enalapril Maleate (Vasotec) 10 mg PO BID [facility] Last Admin: 01/01/17 08:48 Dose: 10 mg Ceftriaxone Sodium 1 gm/ (Sodium Chloride) 100 mls @ 200 mls/hr IV Q24H [facility] Last Admin: 12/31/16 20:14 Dose: 200 mls/hr Sodium Chloride (Sodium Chloride 0.45%) 1,000 mls @ 75 mls/hr IV ASDIRECTED [facility] Last Admin: 01/01/17 02:27 Dose: 75 mls/hr Insulin Aspart (Novolog) 0 unit SUBCUT QIDACANDBED [facility] PRN Reason: Protocol Last Admin: 01/01/17 06:19 Dose: Not Given Pantoprazole Sodium (Protonix Iv) 40 mg IVPUSH Q12H [facility] Last Admin: 01/01/17 03:15 Dose: 40 mg Rosuvastatin Calcium (Crestor) 10 mg PO DAILY [facility] Last Admin: 01/01/17 08:52 Dose: 10 mg Discontinued Medications Famotidine (Pepcid) 20 mg PO ONETIME ONE Stop: 12/30/16 16:14 Last Admin: 12/30/16 16:24 Dose: 20 mg Ondansetron HCl (Zofran) 4 mg IVPUSH ONETIME ONE Stop: 12/30/16 16:14 Last Admin: 12/30/16 16:25 Dose: 4 mg Pantoprazole Sodium (Protonix Iv) 40 mg IVPUSH ONETIME ONE Stop: 12/30/16 16:14 Last Admin: 12/30/16 16:28 Dose: 40 mg - My Orders Last 24 Hours: My Active Orders 12/31/16 10:00 Consult to Wood Planer [CONS] Routine 12/31/16 10:31 Consult to Vmware Architect [CONS] Routine 12/31/16 11:53 VP ANCILLARY Evaluation and Treatment [CONS] Routine 01/02/17 05:00 BASIC METABOLIC PANEL,BMP [CHEM] DAILY CBC WITH AUTO DIFF [HEME] DAILY - Plan Plan:: FAMILY MEETING, 30 MINUTES WITH DISCUSSION OF EGD FINDINGS AND THE NEED FOR NOAC , WILL BE SWITCHED TO ELIQUIS 5 MG BID. PATIENT HAS BASELINE DEMENTIA, UNSPECIFIED. EXTREMELY POOR MEMORY SHORT>SKILLED NURSING. ALSO IS ANXIOUS, SHE HAS BEEN INFORMED THAT SHE CAN NO LONGER DRIVE A MOTOR VEHICLE. SHE IS A DANGER TO HERSELF WELL OTHERS ON THE ROAD; AT TIMES, SHE IS ABLE TO MASK HER CONFUSION BUT AFTER SPENDING MORE TIME WITH HER, THE POOR RECALL AND JUDGMENT IS MORE OBVIOUS. SHE HAD BEEN SEEN BY MYSELF AND DR GAMEZ, BUT DID NOT REMEMBER NEITHER DR GAMEZ OR MYSELF. FURTHER MORE SHE CONFABULATES, THE PRACTICE WAS NOTED BY FAMILY WHO WERE PRESENT DURING THE OCCURRENCE.
[2017-01-01] MEDS ORDERED: Lactated Ringers 1,000 ML ONE (14:02)
--- NOTE | 2017-01-01 15:25 | PCM.HP ---
H&P History of Present Illness - General Source of Information: Patient History Limitations: Reports: No limitations - History of Present Illness Onset of Symptoms: Reports: other Symptom Onset Date: 12/30/16 - Related Data Allergies/Adverse Reactions: Allergies Allergy/AdvReac Type Severity Reaction Status Date / Time No Known Allergies Allergy Verified 12/30/16 14:43 Home Medications: Home Meds Alendronate Sodium [Alendronate] 70 mg PO WEEKLY 12/30/16 [History] Amitriptyline [Elavil] 25 mg PO BEDTIME 12/30/16 [History] Calcium Carbonate 1,200 mg PO DAILY 12/30/16 [History] Docusate Sodium 100 mg PO BEDTIME 12/30/16 [History] Enalapril Maleate 20 mg PO DAILY 12/30/16 [History] Ibuprofen 600 mg PO Q4H PRN 12/30/16 [History] Multivits-Min/Iron/FA/Lutein [Centrum Silver Women Tablet] 1 each PO DAILY 12/30 [History] Rivaroxaban [Xarelto] 20 mg PO DAILY 12/30/16 [History] Sertraline HCl 100 mg PO DAILY 12/30/16 [History] atorvaSTATin Calcium [Atorvastatin Calcium] 40 mg PO DAILY 12/30/16 [History] Past Medical History HEENT History: Reports: Cataract, Impaired vision Cardiovascular History: Reports: High cholesterol Gastrointestinal History: Reports: Colon polyp, Irritable bowel syndrome 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: Musculoskeletal History: Reports: Fibromyalgia Hematologic History: Reports: Blood transfusion(s) Other Hematologic History: Post op at [place] - Infectious Disease History Infectious Disease History: Reports: Chicken pox, Shingles - Past Surgical History GI Surgical History: Reports: Other (see below) Other GI Surgeries/Procedures: surgery on colon 13 years ago for pre cancer in [place] Social & Family History - Family History Cardiac: Reports: Heart failure, High cholesterol, Hypertension GI: Reports: GI bleed OBGYN: Reports: - Tobacco Use Smoking Status *Q: Never Smoker - Caffeine Use Caffeine Use: Reports: Tea - Recreational Drug Use Recreational Drug Use: No Exam - Vital Signs Vital Signs: Last Vital Signs Temp 37.1 C 01/01/17 11:27 Pulse 81 01/01/17 11:27 Resp 16 01/01/17 11:27 BP 149/78 H 01/01/17 11:27 Pulse Ox 98 01/01/17 11:27 Weight: 75.75 kg - Patient Data Lab Results last 24 hrs: Laboratory Results - last 24 hr 12/31/16 12/31/16 01/01/17 Range/Units 17:36 20:19 06:12 WBC (3.98-10.04) K/mm3 RBC (3.98-5.22) M/mm3 Hgb (11.2-15.7) gm/L Hct (34.1-44.9) % MCV (79.4-94.8) fl MCH (25.6-32.2) pg MCHC (32.2-35.5) g/dl RDW Std Deviation (36.4-46.3) fL Plt Count (182-369) K/mm3 MPV (9.4-12.3) fl Neut % (Auto) (34.0-71.1) % Lymph % (Auto) (19.3-51.7) % [place] % (Auto) (4.7-12.5) % Eos % (Auto) (0.7-5.8) Baso % (Auto) (0.1-1.2) % Neut # (Auto) (1.56-6.13) K/mm3 Lymph # (Auto) (1.18-3.74) K/mm3 [place] # (Auto) (0.24-0.36) K/mm3 Eos # (Auto) (0.04-0.36) K/mm3 Baso # (Auto) (0.01-0.08) K/mm3 Sodium 142 (136-145) mEq/L Potassium 3.7 (3.5-5.1) mEq/L Chloride 107 (98-107) mEq/L Carbon Dioxide 27 (21-32) mEq/L Anion Gap 11.7 (5-15) BUN 14 (7-18) mg/dL Creatinine 0.9 (0.55-1.02) mg/dL Est Cr Clr Drug Dosing 44.68 mL/min Estimated GFR (MDRD) > 60 (>60) mL/min BUN/Creatinine Ratio 15.6 (14-18) Glucose 124 H (83-115) mg/dL POC Glucose 93 142 H (83-110) mg/dL Calcium 8.1 L (8.5-10.1) mg/dL Magnesium 2.0 (1.8-2.4) mg/dl 01/01/17 01/01/17 01/01/17 Range/Units 06:12 06:18 11:40 WBC 7.71 (3.98-10.04) K/mm3 RBC 2.86 L (3.98-5.22) M/mm3 Hgb 8.6 L 9.1 L (11.2-15.7) gm/L Hct 27.0 L (34.1-44.9) % MCV 94.4 (79.4-94.8) fl MCH 30.1 (25.6-32.2) pg MCHC 31.9 L (32.2-35.5) g/dl RDW Std Deviation 46.5 H (36.4-46.3) fL Plt Count 152 L (182-369) K/mm3 MPV 12.3 (9.4-12.3) fl Neut % (Auto) 58.6 (34.0-71.1) % Lymph % (Auto) 27.9 (19.3-51.7) % [place] % (Auto) 8.6 (4.7-12.5) % Eos % (Auto) 4.0 (0.7-5.8) Baso % (Auto) 0.5 (0.1-1.2) % Neut # (Auto) 4.52 (1.56-6.13) K/mm3 Lymph # (Auto) 2.15 (1.18-3.74) K/mm3 [place] # (Auto) 0.66 H (0.24-0.36) K/mm3 Eos # (Auto) 0.31 (0.04-0.36) K/mm3 Baso # (Auto) 0.04 (0.01-0.08) K/mm3 Sodium (136-145) mEq/L Potassium (3.5-5.1) mEq/L Chloride (98-107) mEq/L Carbon Dioxide (21-32) mEq/L Anion Gap (5-15) BUN (7-18) mg/dL Creatinine (0.55-1.02) mg/dL Est Cr Clr Drug Dosing mL/min Estimated GFR (MDRD) (>60) mL/min BUN/Creatinine Ratio (14-18) Glucose (83-115) mg/dL POC Glucose 117 H (83-110) mg/dL Calcium (8.5-10.1) mg/dL Magnesium (1.8-2.4) mg/dl 01/01/17 Range/Units 12:21 WBC (3.98-10.04) K/mm3 RBC (3.98-5.22) M/mm3 Hgb (11.2-15.7) gm/L Hct (34.1-44.9) % MCV (79.4-94.8) fl MCH (25.6-32.2) pg MCHC (32.2-35.5) g/dl RDW Std Deviation (36.4-46.3) fL Plt Count (182-369) K/mm3 MPV (9.4-12.3) fl Neut % (Auto) (34.0-71.1) % Lymph % (Auto) (19.3-51.7) % [place] % (Auto) (4.7-12.5) % Eos % (Auto) (0.7-5.8) Baso % (Auto) (0.1-1.2) % Neut # (Auto) (1.56-6.13) K/mm3 Lymph # (Auto) (1.18-3.74) K/mm3 [place] # (Auto) (0.24-0.36) K/mm3 Eos # (Auto) (0.04-0.36) K/mm3 Baso # (Auto) (0.01-0.08) K/mm3 Sodium (136-145) mEq/L Potassium (3.5-5.1) mEq/L Chloride (98-107) mEq/L Carbon Dioxide (21-32) mEq/L Anion Gap (5-15) BUN (7-18) mg/dL Creatinine (0.55-1.02) mg/dL Est Cr Clr Drug Dosing mL/min Estimated GFR (MDRD) (>60) mL/min BUN/Creatinine Ratio (14-18) Glucose (83-115) mg/dL POC Glucose 216 H (83-110) mg/dL Calcium (8.5-10.1) mg/dL Magnesium (1.8-2.4) mg/dl Result Diagrams: 01/01/17 11:40 01/01/17 06:12 Keagan Results last 24 hrs: Microbiology 12/30/16 22:30 Urine Culture - Final Urine, Clean Catch MIXED SHANDA SUGGESTIVE OF CONTAMINATION. *Q Meaningful Use (ADM) - VTE *Q VTE Criteria *Q: - Stroke *Q Stroke Criteria *Q: - AMI *Q AMI Criteria *Q: Orders Last 24hrs: Active Orders 24 hr Category Date Time Status Ambulate [RC] TIDAC Care 01/01/17 12:00 Active Antiembolic Devices [RC] PER UNIT ROUTINE Care 01/01/17 10:42 Active NPO After Midnight [Nothing per Oral After Midnight Diet 01/01/17 Breakfast Active Diet] [DIET] BASIC METABOLIC PANEL,BMP [CHEM] DAILY Lab 01/02/17 05:00 Ordered CBC WITH AUTO DIFF [HEME] DAILY Lab 01/02/17 05:00 Ordered SCD [Sequential Compression Device] [OM.PC] Routine Oth 01/01/17 10:42 Ordered Schedule Procedure [COMM] Routine Oth 01/01/17 13:55 Ordered Medication Orders Amitriptyline HCl (Elavil) 25 mg PO BEDTIME [facility] Last Admin: 12/31/16 20:15 Dose: 25 mg Admin: 12/30/16 21:53 Dose: 25 mg Enalapril Maleate (Vasotec) 10 mg PO BID [facility] Last Admin: 01/01/17 08:48 Dose: 10 mg Admin: 12/31/16 20:14 Dose: 10 mg Admin: 12/31/16 10:12 Dose: 10 mg Ceftriaxone Sodium 1 gm/ (Sodium Chloride) 100 mls @ 200 mls/hr IV Q24H [facility] Last Admin: 12/31/16 20:14 Dose: 200 mls/hr Infusion: 12/30/16 22:23 Dose: 200 mls/hr Admin: 12/30/16 21:53 Dose: 200 mls/hr Sodium Chloride (Sodium Chloride 0.45%) 1,000 mls @ 75 mls/hr IV ASDIRECTED [facility] Last Admin: 01/01/17 02:27 Dose: 75 mls/hr Infusion: 01/01/17 02:00 Dose: 75 mls/hr Admin: 12/31/16 12:40 Dose: 75 mls/hr Infusion: 12/31/16 11:13 Dose: 75 mls/hr Admin: 12/30/16 21:53 Dose: 75 mls/hr Insulin Aspart (Novolog) 0 unit SUBCUT QIDACANDBED [facility] PRN Reason: Protocol Last Admin: 01/01/17 12:24 Dose: 2 units Admin: 01/01/17 06:19 Dose: Admin: 12/31/16 21:07 Dose: Admin: 12/31/16 17:41 Dose: Not Given Admin: 12/31/16 12:43 Dose: Not Given Admin: 12/31/16 06:38 Dose: Not Given Admin: 12/30/16 22:01 Dose: Not Given Pantoprazole Sodium (Protonix Iv) 40 mg IVPUSH Q12H [facility] Last Admin: 01/01/17 03:15 Dose: 40 mg Admin: 12/31/16 17:00 Dose: 40 mg Admin: 12/31/16 04:40 Dose: 40 mg Rosuvastatin Calcium (Crestor) 10 mg PO DAILY [facility] Last Admin: 01/01/17 08:52 Dose: 10 mg Admin: 12/31/16 10:12 Dose: 10 mg Assessment/Plan Comment:: As above Initial hgb this am down to 8.6, recheck up to 9.1 today. No need for transfusion at this time. -NPO after breakfast of clear liquid today for EGD later today with Dr. Gamez -CDE; likely home on oral agent -Significant cognitive impairment on cog eval; recommend assisted living placement at this time for safety vs 24hr care. Will recommend no driving due to reports from family members she is getting lost in parking lots while driving. Consider Neurology eval on discharge. -Ambulate in hallways TID Plan for EGD later this afternoon with Dr. Gamez DC planning ongoing, pending findings of EGD later today.
[2017-01-01] MEDS ORDERED: fentaNYL 100 MCG/2 ML SDV ONE (15:50)
[2017-01-01] MEDS ORDERED: Propofol 200 MG/20 ML SDV ONE (15:50)
[2017-01-01] MEDS ORDERED: Lidocaine 1% 4 ML ONE (15:51)
--- NOTE | 2017-01-01 16:39 | PCM.OPNOTE ---
- General Post-Op/Procedure Note Date of Surgery/Procedure: 01/01/17 Operative Procedure(s): Diagnostic EGD with cold forceps biopsy Pre Op Diagnosis: GI bleeding Post-Op Diagnosis: Gastric ulcer, not currently bleeding and mild diffuse gastritis Anesthesia Technique: MAC Primary Surgeon: Darline Gamez Anesthesia Provider: Pee Johnson Pathology: 1. Small bowel biopsy 2. Antral biopsy 3. Distal esophageal biopsy Fluid Replacement, Intraop: 300 (mL crystalloid) EBL in mLs: 1 Complications: None Condition: Good Free Text/Narrative:: INDICATION FOR PROCEDURE: The patient is a 76-year-old woman who I was asked to see in consultation by Dr. Adri Duff for evaluation of gastrointestinal bleeding. The patient had been on Xarelto for a small questionable DVT and taking large amounts of NSAIDs. EGD had been discussed with the patient and risks of the associated procedure. The patient found these risks acceptable and agreed to proceed. DESCRIPTION OF PROCEDURE: The patient was taken to the operating room and placed in the left lateral decubitus position. After induction of adequate sedation, a bite block was placed. A standard Olympus gastroscope was inserted into the oropharynx and guided down the esophagus without difficulty. The gastroesophageal junction was appreciated at 38 cm from the teeth. There was no evidence of stricture or esophageal ulcerations. The scope was advanced into the stomach, and there was mild diffuse gastritis with a prepyloric antral ulcer that was not actively bleeding. The ulcer was cratered and medium in size. The scope was passed into the proximal jejunum and the duodenum which were unremarkable. There were no petechiae or ulcerations. The proximal jejunum was grossly normal in appearance. Multiple cold forceps biopsies were obtained of the proximal jejunum and duodenum. The scope was withdrawn into the antrum, and additional cold forceps biopsies were obtained. The remainder of the gastric body was examined, and there were no additional abnormalities. The scope was retroflexed, and there was no evidence of hiatal hernia. The scope was straightened and withdrawn to the GE junction. Additional cold forceps biopsies were obtained of the distal esophagus. The scope was withdrawn through the remainder of the esophagus and no further abnormalities were noted. The posterior oropharynx was grossly normal in appearance. The scope was then fully withdrawn. The patient was awakened from sedation and transferred to the recovery room in stable condition having tolerated the procedure well. POSTOPERATIVE PLAN: I discussed with the patient and Dr. Duff my intraoperative findings and postoperative recommendations. The patient should follow up in approximately 7-10 days to discuss their pathology and how their symptoms are progressing. The patient is to continue daily PPI. She is to avoid NSAIDs. I would recommend not restarting therapeutic anticoagulation for 2 days. I have asked the patient to follow a GERD\gastritis diet. The patient is to call with any worsening of symptoms or questions prior to appointment.
--- NOTE | 2017-01-01 16:45 | PCM48HPAN ---
Post Anesthesia Note - EVALUATION WITHIN 48HRS OF ANESTHETIC Vital Signs in Normal Range: Yes Patient Participated in Evaluation: Yes Respiratory Function Stable: Yes Airway Patent: Yes Cardiovascular Function Stable: Yes Hydration Status Stable: Yes Pain Control Satisfactory: Yes Nausea and Vomiting Control Satisfactory: Yes Mental Status Recovered: Yes
--- NOTE | 2017-01-01 16:52 | PCM.CONSN ---
- General Info Date of Service: 01/01/17 Subjective Update: 76 year old female Presented with GI bleeding on 12/30/16. Her PCP is Heaven Kang PA-C. Had been vomiting black and bloody emesis. Has had no bloody or black emesis since this time. Stools were dark as well at that time. She was bothered by the blood clot she threw up on the . Patient was taking Xarelto for a DVT to left leg. Stopped Xarelto on the . Also was taking ibuprofen 3-6 per day for years for low back pain for years. Stopped ibuprofen on as well. No recurrence of symptoms. No pain. No concerns. Has hx of gas and bloating in the evening. Does takes stool softner daily. No constipation, diarrhea, blood in stools. NO change in bowel habits. Last colonoscopy reported [address] Sol. 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 Functional Status: Reports: pain controlled, tolerating diet, ambulating, urinating. Denies: new symptoms Pain Score: 0 - Review of Systems General: Reports: No Symptoms HEENT: Reports: no symptoms Pulmonary: Reports: no symptoms Cardiovascular: Reports: No Symptoms Gastrointestinal: Reports: No symptoms Genitourinary: Reports: no symptoms Musculoskeletal: Reports: no symptoms Skin: Reports: no symptoms Neurological: Reports: No Symptoms Psychiatric: Reports: no symptoms - Patient Data Vitals - most recent: Last Vital Signs Temp 37.1 C 01/01/17 11:27 Pulse 81 01/01/17 11:27 Resp 16 01/01/17 11:27 BP 149/78 H 01/01/17 11:27 Pulse Ox 98 01/01/17 11:27 Weight - most recent: 75.75 kg I&O - last 24 hours: Intake & Output 01/01/17 01/01/17 01/01/17 06:59 14:59 22:59 Intake Total 2260 1349 300 Output Total 1700 Balance 560 1349 300 Lab Results last 24 hrs: Laboratory Results - last 24 hr 12/31/16 12/31/16 01/01/17 Range/Units 17:36 20:19 06:12 WBC (3.98-10.04) K/mm3 RBC (3.98-5.22) M/mm3 Hgb (11.2-15.7) gm/L Hct (34.1-44.9) % MCV (79.4-94.8) fl MCH (25.6-32.2) pg MCHC (32.2-35.5) g/dl RDW Std Deviation (36.4-46.3) fL Plt Count (182-369) K/mm3 MPV (9.4-12.3) fl Neut % (Auto) (34.0-71.1) % Lymph % (Auto) (19.3-51.7) % Cassia % (Auto) (4.7-12.5) % Eos % (Auto) (0.7-5.8) Baso % (Auto) (0.1-1.2) % Neut # (Auto) (1.56-6.13) K/mm3 Lymph # (Auto) (1.18-3.74) K/mm3 Cassia # (Auto) (0.24-0.36) K/mm3 Eos # (Auto) (0.04-0.36) K/mm3 Baso # (Auto) (0.01-0.08) K/mm3 Sodium 142 (136-145) mEq/L Potassium 3.7 (3.5-5.1) mEq/L Chloride 107 (98-107) mEq/L Carbon Dioxide 27 (21-32) mEq/L Anion Gap 11.7 (5-15) BUN 14 (7-18) mg/dL Creatinine 0.9 (0.55-1.02) mg/dL Est Cr Clr Drug Dosing 44.68 mL/min Estimated GFR (MDRD) > 60 (>60) mL/min BUN/Creatinine Ratio 15.6 (14-18) Glucose 124 H (83-115) mg/dL POC Glucose 93 142 H (83-110) mg/dL Calcium 8.1 L (8.5-10.1) mg/dL Magnesium 2.0 (1.8-2.4) mg/dl 01/01/17 01/01/17 01/01/17 Range/Units 06:12 06:18 11:40 WBC 7.71 (3.98-10.04) K/mm3 RBC 2.86 L (3.98-5.22) M/mm3 Hgb 8.6 L 9.1 L (11.2-15.7) gm/L Hct 27.0 L (34.1-44.9) % MCV 94.4 (79.4-94.8) fl MCH 30.1 (25.6-32.2) pg MCHC 31.9 L (32.2-35.5) g/dl RDW Std Deviation 46.5 H (36.4-46.3) fL Plt Count 152 L (182-369) K/mm3 MPV 12.3 (9.4-12.3) fl Neut % (Auto) 58.6 (34.0-71.1) % Lymph % (Auto) 27.9 (19.3-51.7) % Cassia % (Auto) 8.6 (4.7-12.5) % Eos % (Auto) 4.0 (0.7-5.8) Baso % (Auto) 0.5 (0.1-1.2) % Neut # (Auto) 4.52 (1.56-6.13) K/mm3 Lymph # (Auto) 2.15 (1.18-3.74) K/mm3 Cassia # (Auto) 0.66 H (0.24-0.36) K/mm3 Eos # (Auto) 0.31 (0.04-0.36) K/mm3 Baso # (Auto) 0.04 (0.01-0.08) K/mm3 Sodium (136-145) mEq/L Potassium (3.5-5.1) mEq/L Chloride (98-107) mEq/L Carbon Dioxide (21-32) mEq/L Anion Gap (5-15) BUN (7-18) mg/dL Creatinine (0.55-1.02) mg/dL Est Cr Clr Drug Dosing mL/min Estimated GFR (MDRD) (>60) mL/min BUN/Creatinine Ratio (14-18) Glucose (83-115) mg/dL POC Glucose 117 H (83-110) mg/dL Calcium (8.5-10.1) mg/dL Magnesium (1.8-2.4) mg/dl 01/01/17 Range/Units 12:21 WBC (3.98-10.04) K/mm3 RBC (3.98-5.22) M/mm3 Hgb (11.2-15.7) gm/L Hct (34.1-44.9) % MCV (79.4-94.8) fl MCH (25.6-32.2) pg MCHC (32.2-35.5) g/dl RDW Std Deviation (36.4-46.3) fL Plt Count (182-369) K/mm3 MPV (9.4-12.3) fl Neut % (Auto) (34.0-71.1) % Lymph % (Auto) (19.3-51.7) % Cassia % (Auto) (4.7-12.5) % Eos % (Auto) (0.7-5.8) Baso % (Auto) (0.1-1.2) % Neut # (Auto) (1.56-6.13) K/mm3 Lymph # (Auto) (1.18-3.74) K/mm3 Cassia # (Auto) (0.24-0.36) K/mm3 Eos # (Auto) (0.04-0.36) K/mm3 Baso # (Auto) (0.01-0.08) K/mm3 Sodium (136-145) mEq/L Potassium (3.5-5.1) mEq/L Chloride (98-107) mEq/L Carbon Dioxide (21-32) mEq/L Anion Gap (5-15) BUN (7-18) mg/dL Creatinine (0.55-1.02) mg/dL Est Cr Clr Drug Dosing mL/min Estimated GFR (MDRD) (>60) mL/min BUN/Creatinine Ratio (14-18) Glucose (83-115) mg/dL POC Glucose 216 H (83-110) mg/dL Calcium (8.5-10.1) mg/dL Magnesium (1.8-2.4) mg/dl Keagan Results last 24 hrs: Microbiology 12/30/16 22:30 Urine Culture - Final Urine, Clean Catch MIXED SHANDA SUGGESTIVE OF CONTAMINATION. Med Orders - Current: Current Medications Amitriptyline HCl (Elavil) 25 mg PO BEDTIME [facility] Last Admin: 12/31/16 20:15 Dose: 25 mg Enalapril Maleate (Vasotec) 10 mg PO BID [facility] Last Admin: 01/01/17 08:48 Dose: 10 mg Ceftriaxone Sodium 1 gm/ (Sodium Chloride) 100 mls @ 200 mls/hr IV Q24H [facility] Last Admin: 12/31/16 20:14 Dose: 200 mls/hr Sodium Chloride (Sodium Chloride 0.45%) 1,000 mls @ 75 mls/hr IV ASDIRECTED [facility] Last Admin: 01/01/17 02:27 Dose: 75 mls/hr Insulin Aspart (Novolog) 0 unit SUBCUT QIDACANDBED [facility] PRN Reason: Protocol Last Admin: 01/01/17 12:24 Dose: 2 units Pantoprazole Sodium (Protonix Iv) 40 mg IVPUSH Q12H [facility] Last Admin: 01/01/17 03:15 Dose: 40 mg Rosuvastatin Calcium (Crestor) 10 mg PO DAILY [facility] Last Admin: 01/01/17 08:52 Dose: 10 mg Discontinued Medications Famotidine (Pepcid) 20 mg PO ONETIME ONE Stop: 12/30/16 16:14 Last Admin: 12/30/16 16:24 Dose: 20 mg Fentanyl (Sublimaze) Confirm Administered Dose 100 mcg .ROUTE .STK-MED ONE Stop: 01/01/17 15:51 Lactated Ringer's (Ringers, Lactated) Confirm Administered Dose 1,000 mls @ as directed .ROUTE .STK-MED ONE Stop: 01/01/17 14:03 Lidocaine HCl (Xylocaine-Mpf 1%) Confirm Administered Dose 4 mls @ as directed .ROUTE .STK-MED ONE Stop: 01/01/17 15:52 Ondansetron HCl (Zofran) 4 mg IVPUSH ONETIME ONE Stop: 12/30/16 16:14 Last Admin: 12/30/16 16:25 Dose: 4 mg Pantoprazole Sodium (Protonix Iv) 40 mg IVPUSH ONETIME ONE Stop: 12/30/16 16:14 Last Admin: 12/30/16 16:28 Dose: 40 mg Propofol (Diprivan 20 Ml) Confirm Administered Dose 200 mg .ROUTE .STK-MED ONE Stop: 01/01/17 15:51 - Exam General: alert, oriented, cooperative, other (poor historian) HEENT: Mucous membr. moist/pink. No: Scleral icterus Lungs: Clear to auscultation, Normal respiratory effort Cardiovascular: Regular Rate, Regular Rhythm, No Murmurs Abdomen: soft, no tenderness, no distension Back Exam: normal inspection Extremities: no edema, no tenderness/swelling, no clubbing, no cyanosis, no calf tenderness Skin: warm, dry, intact Neurological: no new focal deficit Psy/Mental Status: alert, normal affect, normal mood Consult PN Assessment/Plan Procedures: Procedures ASSAY THYROID STIM HORMONE (08/13/16) C-REACTIVE PROTEIN (11/19/16) COMP SCREEN MAMMOGRAM ADD-ON (02/09/16) COMPLETE CBC AUTOMATED (08/13/16) COMPLETE CBC W/AUTO DIFF WBC (11/19/16) COMPREHEN METABOLIC PANEL (08/13/16) DXA BONE DENSITY AXIAL (03/05/16) EXTRACRANIAL BILAT STUDY (08/13/16) EXTREMITY STUDY (11/22/16) LIPID PANEL (08/13/16) MANUAL THERAPY 1/> REGIONS (03/22/15) METABOLIC PANEL TOTAL CA (11/19/16) MRI JOINT UPR EXTREM W/O DYE (12/18/15) MRI NECK SPINE W/O DYE (01/03/16) OCCULT BLD FECES 1-3 TESTS (03/28/14) PT EVALUATION (02/02/15) ROUTINE VENIPUNCTURE (11/19/16) THERAPEUTIC EXERCISES (03/22/15) ULTRASOUND THERAPY (03/22/15) URINALYSIS AUTO W/O SCOPE (08/13/16) X-RAY EXAM NECK SPINE 2-3 VW (01/25/15) X-RAY EXAM OF SHOULDER (01/25/15) Problem List Initiated/Reviewed/Updated: Yes My Orders last 24 hours: Assessment: GI Bleed Gastric Ulcer Plan: Patient has had no recurrence of GI bleeding. Hgb stable. EGD completed as planned with Dr. Gamez. Hold Xarelto for 48 hours post EGD. Restart per hospitalist's discretion for DVT, family hx of potential clotting disorder. Continue to hold NSAIDs. GERD/gastritis diet. Continue acid suppressive therapy Di Burks NP
[2017-01-01] MEDS: Amitriptyline 25 MG Tab PO SCH (20:09)
[2017-01-01] MEDS: cefTRIAXone 1 GM in Sodium Chloride 0.9% 100 ML IV SCH (20:09)
[2017-01-02] MEDS: Pantoprazole 40 MG Vial IVPUSH SCH ×2 (04:46→15:08)
[2017-01-02] MEDS: Insulin Aspart 100 Units/ML 3 ML Pen SUBCUT SCH ×2 (06:46→12:56)
[2017-01-02] MEDS ORDERED: Flu Vaccine 2016-17(36Mos+)/PF 60 MCG/0.5 ML Syringe IM ONE (07:52)
[2017-01-02] MEDS ORDERED: Diphtheria,Pertussis(Acell),Tetanus Vaccine 0.5 ML SDV inactive IM ONE (07:52)
[2017-01-02] MEDS ORDERED: Pneumococcal 13-Valent Conjugate Vaccine 0.5 ML Syringe IM ONE (07:53)
[2017-01-02] MEDS: Rosuvastatin 10 MG Tab PO SCH (08:38)
[2017-01-02] MEDS ORDERED: Rivaroxaban 10 MG Tab PO SCH (09:00)
[2017-01-02] MEDS ORDERED: Non-Formulary Medication 1 Each (Alendronate Sodium 70 MG) PO SCH (10:30)
[2017-01-02] MEDS ORDERED: Ascorbic Acid 500 MG Tab PO SCH (10:45)
[2017-01-02] MEDS ORDERED: Ferrous Sulfate 325 MG Tab PO SCH (10:45)
[2017-01-02] MEDS ORDERED: metFORMIN 500 MG Tab PO ONE (11:00)
[2017-01-02] MEDS ORDERED: Calcium Carbonate 600 MG Tab PO SCH (11:00)
[2017-01-02] MEDS ORDERED: Multivitamins,Therapeutic Tab PO SCH (11:00)
[2017-01-02] MEDS ORDERED: Apixaban 5 MG Tab PO SCH (11:00)
--- NOTE | 2017-01-02 13:27 | PCM.PN ---
<Justina Sanders - Last Filed: 01/02/17 15:23> - General Info Date of Service: 01/02/17 Admission Dx/Problem (Free Text): GI bleed Patient doing well this morning. Denies c/o pain/discomfort. Slept well. VSS, afebrile overnight. Continues to have difficulty with short term memory. States to me this morning "I haven't any idea who this Dr. Duff is that tells me I can't drive", "what can I do about this, who else can I talk to", "I want some examples of why they tell me I can't drive". I review with her many conversations of memory lapses just since her hospital stay. She is unaware and no recollection of most of these instances. She does not remember me from visiting with her yesterday. She and family refuse xarelto and wish eliquis for blood thinner. Despite conversations with Dr. Duff and Dr. Gamez that the xarelto did not cause her GI bleed but only contributed to the bleeding, she would like to be on a "different one". Plan will be for her to dc home on eliquis. Today when I ask patient about her PCP she is unsure. Previously I had been told Della Temple, but today patient states "I don't know, it's her or her look a like", she could not recall another providers name as to who that may be. Functional Status: Reports: pain controlled, tolerating diet (will advance to regular diet today; if tolerates well can be dc'd home later today.), ambulating , urinating. Denies: new symptoms - Review of Systems General: Reports: No Symptoms. Denies: Fever, Fatigue HEENT: Reports: no symptoms Pulmonary: Reports: no symptoms Cardiovascular: Reports: No Symptoms Gastrointestinal: Reports: No symptoms. Denies: Abdominal pain, Diarrhea, Nausea, Vomiting Genitourinary: Reports: no symptoms Neurological: Reports: Confusion (intermittent short term memory lapses noted by staff and family; patient is unaware of this.) - Patient Data Vitals - most recent: Last Vital Signs Temp 99.0 F 01/02/17 11:11 Pulse 82 01/02/17 11:11 Resp 18 01/02/17 11:11 BP 127/97 H 01/02/17 11:11 Pulse Ox 98 01/02/17 11:11 Weight - most recent: 76.612 kg I&O - last 24 hours: Intake & Output 01/01/17 01/02/17 01/02/17 22:59 06:59 14:59 Intake Total 3680 600 585 Output Total 3050 950 Balance 630 -350 585 Lab Results last 24 hrs: Laboratory Results - last 24 hr 01/01/17 01/01/17 01/02/17 Range/Units 17:23 20:13 06:10 WBC (3.98-10.04) K/mm3 RBC (3.98-5.22) M/mm3 Hgb (11.2-15.7) gm/L Hct (34.1-44.9) % MCV (79.4-94.8) fl MCH (25.6-32.2) pg MCHC (32.2-35.5) g/dl RDW Std Deviation (36.4-46.3) fL Plt Count (182-369) K/mm3 MPV (9.4-12.3) fl Neut % (Auto) (34.0-71.1) % Lymph % (Auto) (19.3-51.7) % [place] % (Auto) (4.7-12.5) % Eos % (Auto) (0.7-5.8) Baso % (Auto) (0.1-1.2) % Neut # (Auto) (1.56-6.13) K/mm3 Lymph # (Auto) (1.18-3.74) K/mm3 [place] # (Auto) (0.24-0.36) K/mm3 Eos # (Auto) (0.04-0.36) K/mm3 Baso # (Auto) (0.01-0.08) K/mm3 Sodium 143 (136-145) mEq/L Potassium 3.6 (3.5-5.1) mEq/L Chloride 108 H (98-107) mEq/L Carbon Dioxide 25 (21-32) mEq/L Anion Gap 13.6 (5-15) BUN 9 (7-18) mg/dL Creatinine 0.8 (0.55-1.02) mg/dL Est Cr Clr Drug Dosing 50.26 mL/min Estimated GFR (MDRD) > 60 (>60) mL/min BUN/Creatinine Ratio 11.3 L (14-18) Glucose 127 H (83-115) mg/dL POC Glucose 99 180 H (83-110) mg/dL Calcium 8.3 L (8.5-10.1) mg/dL 01/02/17 01/02/17 01/02/17 Range/Units 06:10 06:19 10:46 WBC 7.00 (3.98-10.04) K/mm3 RBC 2.85 L (3.98-5.22) M/mm3 Hgb 8.4 L 9.4 L (11.2-15.7) gm/L Hct 27.0 L (34.1-44.9) % MCV 94.7 (79.4-94.8) fl MCH 29.5 (25.6-32.2) pg MCHC 31.1 L (32.2-35.5) g/dl RDW Std Deviation 47.3 H (36.4-46.3) fL Plt Count 142 L (182-369) K/mm3 MPV 12.3 (9.4-12.3) fl Neut % (Auto) 59.2 (34.0-71.1) % Lymph % (Auto) 24.7 (19.3-51.7) % [place] % (Auto) 10.3 (4.7-12.5) % Eos % (Auto) 4.6 (0.7-5.8) Baso % (Auto) 0.6 (0.1-1.2) % Neut # (Auto) 4.15 (1.56-6.13) K/mm3 Lymph # (Auto) 1.73 (1.18-3.74) K/mm3 [place] # (Auto) 0.72 H (0.24-0.36) K/mm3 Eos # (Auto) 0.32 (0.04-0.36) K/mm3 Baso # (Auto) 0.04 (0.01-0.08) K/mm3 Sodium (136-145) mEq/L Potassium (3.5-5.1) mEq/L Chloride (98-107) mEq/L Carbon Dioxide (21-32) mEq/L Anion Gap (5-15) BUN (7-18) mg/dL Creatinine (0.55-1.02) mg/dL Est Cr Clr Drug Dosing mL/min Estimated GFR (MDRD) (>60) mL/min BUN/Creatinine Ratio (14-18) Glucose (83-115) mg/dL POC Glucose 119 H (83-110) mg/dL Calcium (8.5-10.1) mg/dL 01/02/17 Range/Units 11:22 WBC (3.98-10.04) K/mm3 RBC (3.98-5.22) M/mm3 Hgb (11.2-15.7) gm/L Hct (34.1-44.9) % MCV (79.4-94.8) fl MCH (25.6-32.2) pg MCHC (32.2-35.5) g/dl RDW Std Deviation (36.4-46.3) fL Plt Count (182-369) K/mm3 MPV (9.4-12.3) fl Neut % (Auto) (34.0-71.1) % Lymph % (Auto) (19.3-51.7) % [place] % (Auto) (4.7-12.5) % Eos % (Auto) (0.7-5.8) Baso % (Auto) (0.1-1.2) % Neut # (Auto) (1.56-6.13) K/mm3 Lymph # (Auto) (1.18-3.74) K/mm3 [place] # (Auto) (0.24-0.36) K/mm3 Eos # (Auto) (0.04-0.36) K/mm3 Baso # (Auto) (0.01-0.08) K/mm3 Sodium (136-145) mEq/L Potassium (3.5-5.1) mEq/L Chloride (98-107) mEq/L Carbon Dioxide (21-32) mEq/L Anion Gap (5-15) BUN (7-18) mg/dL Creatinine (0.55-1.02) mg/dL Est Cr Clr Drug Dosing mL/min Estimated GFR (MDRD) (>60) mL/min BUN/Creatinine Ratio (14-18) Glucose (83-115) mg/dL POC Glucose 160 H (83-110) mg/dL Calcium (8.5-10.1) mg/dL Keagan Results last 24 hrs: Microbiology 12/30/16 22:30 Urine Culture - Final Urine, Clean Catch MIXED SHANDA SUGGESTIVE OF CONTAMINATION. Med Orders - Current: Current Medications Amitriptyline HCl (Elavil) 25 mg PO BEDTIME [facility] Last Admin: 01/01/17 20:09 Dose: 25 mg Apixaban (Eliquis) 5 mg PO BID [facility] Last Admin: 01/02/17 11:24 Dose: 5 mg Ascorbic Acid (Vitamin C) 500 mg PO DAILY [facility] Last Admin: 01/02/17 11:23 Dose: 500 mg Calcium Carbonate/Glycine (Calcium Carbonate) 1,200 mg PO DAILY [facility] Last Admin: 01/02/17 11:23 Dose: 1,200 mg Docusate Sodium (Colace) 100 mg PO BEDTIME [facility] Enalapril Maleate (Vasotec) 10 mg PO BID [facility] Last Admin: 01/02/17 08:39 Dose: 10 mg Ferrous Sulfate (Ferrous Sulfate) 325 mg PO DAILY [facility] Last Admin: 01/02/17 11:24 Dose: 325 mg Insulin Aspart (Novolog) 0 unit SUBCUT QIDACANDBED [facility] PRN Reason: Protocol Last Admin: 01/02/17 12:56 Dose: 1 units Metformin HCl (Glucophage) 500 mg PO BIDMEALS [facility] Multivitamins (Thera) 1 each PO DAILY [facility] Last Admin: 01/02/17 11:24 Dose: 1 each Pantoprazole Sodium (Protonix Iv) 40 mg IVPUSH Q12H [facility] Last Admin: 01/02/17 04:46 Dose: 40 mg Rosuvastatin Calcium (Crestor) 10 mg PO DAILY [facility] Last Admin: 01/02/17 08:38 Dose: 10 mg Sertraline HCl (Zoloft) 100 mg PO DAILY [facility] Discontinued Medications Diphtheria/Tetanus/Acell Pertussis (Boostrix) 0.5 ml IM .ONCE ONE Stop: 01/02/17 07:53 Famotidine (Pepcid) 20 mg PO ONETIME ONE Stop: 12/30/16 16:14 Last Admin: 12/30/16 16:24 Dose: 20 mg Fentanyl (Sublimaze) Confirm Administered Dose 100 mcg .ROUTE .STK-MED ONE Stop: 01/01/17 15:51 Ceftriaxone Sodium 1 gm/ (Sodium Chloride) 100 mls @ 200 mls/hr IV Q24H [facility] Last Admin: 01/01/17 20:09 Dose: 200 mls/hr Sodium Chloride (Sodium Chloride 0.45%) 1,000 mls @ 75 mls/hr IV ASDIRECTED [facility] Last Admin: 01/01/17 02:27 Dose: 75 mls/hr Lactated Ringer's (Ringers, Lactated) Confirm Administered Dose 1,000 mls @ as directed .ROUTE .STK-MED ONE Stop: 01/01/17 14:03 Last Admin: 01/01/17 15:45 Dose: 1,000 ml Lidocaine HCl (Xylocaine-Mpf 1%) Confirm Administered Dose 4 mls @ as directed .ROUTE .STK-MED ONE Stop: 01/01/17 15:52 Influenza Virus Vaccine (Fluzone/Fluarix Vaccine) 60 mcg IM .ONCE ONE Stop: 01/02/17 07:53 Metformin HCl (Glucophage) 500 mg PO ONETIME ONE Stop: 01/02/17 11:01 Last Admin: 01/02/17 11:29 Dose: 500 mg Non-Formulary Medication (Alendronate Sodium) 70 mg PO WEEKLY [facility] Ondansetron HCl (Zofran) 4 mg IVPUSH ONETIME ONE Stop: 12/30/16 16:14 Last Admin: 12/30/16 16:25 Dose: 4 mg Pantoprazole Sodium (Protonix Iv) 40 mg IVPUSH ONETIME ONE Stop: 12/30/16 16:14 Last Admin: 12/30/16 16:28 Dose: 40 mg Pneumococcal 13-Valent Conj Vacc (Prevnar 13) 0.5 ml IM .ONCE ONE Stop: 01/02/17 07:54 Propofol (Diprivan 20 Ml) Confirm Administered Dose 200 mg .ROUTE .STK-MED ONE Stop: 01/01/17 15:51 Rivaroxaban (Xarelto) 20 mg PO DAILY [facility] - Exam Quality Assessment: DVT prophylaxis General: alert, oriented, cooperative, no acute distress HEENT: Pupils equal, Pupils reactive, EOMI, Mucous membr. moist/pink Neck: supple Lungs: Clear to auscultation, Normal respiratory effort Cardiovascular: Regular Rate, Regular Rhythm Abdomen: bowel sounds present, soft, no tenderness. No: rigidity, rebound, guarding (Female) Exam: Deferred Back Exam: normal inspection Extremities: no edema, no calf tenderness Peripheral Pulses: 1+: dorsalis pedis (L), dorsalis pedis (R) Skin: warm, dry, intact Neurological: no new focal deficit Psy/Mental Status: alert, normal affect, normal mood - Problem List & Annotations (1) Gastric hemorrhage SNOMED Code(s): 95831426 Code(s): K92.2 - GASTROINTESTINAL HEMORRHAGE, UNSPECIFIED Status: Acute Priority: High (2) Anemia SNOMED Code(s): 271909057 Code(s): D64.9 - ANEMIA, UNSPECIFIED Status: Acute Priority: High Qualifiers: Anemia type: unspecified type Qualified Code(s): D64.9 - Anemia, unspecified (3) Hyperglycemia due to type 2 diabetes mellitus SNOMED Code(s): 896308733064998, 904765877224300 Code(s): E11.65 - TYPE 2 DIABETES MELLITUS WITH HYPERGLYCEMIA Status: Acute Priority: High Qualifiers: Diabetes mellitus senior care insulin use: without senior care use Qualified Code(s): E11.65 - Type 2 diabetes mellitus with hyperglycemia (4) Memory loss SNOMED Code(s): 00685804 Code(s): R41.3 - OTHER AMNESIA Status: Acute Priority: High Annotation/ Comment:: acute on chronic - Problem List Review Problem List Initiated/Reviewed/Updated: Yes - My Orders Last 24 Hours: My Active Orders 01/02/17 10:45 Ascorbic Acid [Vitamin C] 500 mg PO DAILY Ferrous Sulfate 325 mg PO DAILY 01/02/17 11:00 Apixaban [Eliquis] 5 mg PO BID Calcium Carbonate 1,200 mg PO DAILY Multivitamins,Therapeutic [Thera] 1 each PO DAILY 01/02/17 17:00 metFORMIN [Glucophage] 500 mg PO BIDMEALS 01/02/17 21:00 Docusate Sodium [Colace] 100 mg PO BEDTIME 01/02/17 Lunch ADA Diabetic [[place] [employer] Diet] [DIET] 01/03/17 11:00 Sertraline [Zoloft] 100 mg PO DAILY - Plan Plan:: I/P: GI Bleed likely d/t NSAID use -Patient wishes not to continue xarelto; she feels that this lead to GI bleed - despite multiple conversations that this is not the cause but may have lead to further bleeding. She is in agreement to Ashleequis- will start this BID for further anticoagulation due to chronic and recurrent DVT. -EGD completed with Dr. Gamez yesterday, advanced to regular diet today -Protonix BID -Avoid NSAIDS- tylenol PRN -Fup with Dr. Gamez as outpatient -Recheck hgb this am 8.4, recheck up to >9; no need for transfusion. -Plan dc later today if tolerates diet well -Await family for DC so they are available to hear dc instructions Newly dx DM -Will DC home on metformin 500mg PO BID -Recommend fup with CDE -Fup with PCP as outpatient within 1 week of discharge -Significant cognitive impairment ? dementia -Noted by multiple staff members and providers. Per [employer]ATE there is impairment with cog eval -At this time team recommens assisted living placement for safety vs 24hr care. Will recommend no driving; medically unfit-- due to reports from family members she is getting lost in parking lots while driving. -Consider Neurology eval on discharge. Will arrange consult Other: DVT prophylax CM/SW for DC planning PT/OT Full Code status <Adri Duff - Last Filed: 01/03/17 17:01> - Patient Data Vitals - most recent: Last Vital Signs Temp 37.4 C 01/02/17 16:14 Pulse 92 01/02/17 16:14 Resp 17 01/02/17 16:14 BP 141/69 H 01/02/17 16:14 Pulse Ox 98 01/02/17 16:14 Med Orders - Current: Current Medications Discontinued Medications Amitriptyline HCl (Elavil) 25 mg PO BEDTIME [facility] Last Admin: 01/01/17 20:09 Dose: 25 mg Apixaban (Eliquis) 5 mg PO BID [facility] Last Admin: 01/02/17 11:24 Dose: 5 mg Ascorbic Acid (Vitamin C) 500 mg PO DAILY [facility] Last Admin: 01/02/17 11:23 Dose: 500 mg Calcium Carbonate/Glycine (Calcium Carbonate) 1,200 mg PO DAILY [facility] Last Admin: 01/02/17 11:23 Dose: 1,200 mg Diphtheria/Tetanus/Acell Pertussis (Boostrix) 0.5 ml IM .ONCE ONE Stop: 01/02/17 07:53 Last Admin: 01/02/17 18:11 Dose: 0.5 ml Docusate Sodium (Colace) 100 mg PO BEDTIME [facility] Enalapril Maleate (Vasotec) 10 mg PO BID [facility] Last Admin: 01/02/17 08:39 Dose: 10 mg Famotidine (Pepcid) 20 mg PO ONETIME ONE Stop: 12/30/16 16:14 Last Admin: 12/30/16 16:24 Dose: 20 mg Fentanyl (Sublimaze) Confirm Administered Dose 100 mcg .ROUTE .[facility] ONE Stop: 01/01/17 15:51 Ferrous Sulfate (Ferrous Sulfate) 325 mg PO DAILY [facility] Last Admin: 01/02/17 11:24 Dose: 325 mg Ceftriaxone Sodium 1 gm/ (Sodium Chloride) 100 mls @ 200 mls/hr IV Q24H [facility] Last Admin: 01/01/17 20:09 Dose: 200 mls/hr Sodium Chloride (Sodium Chloride 0.45%) 1,000 mls @ 75 mls/hr IV ASDIRECTED [facility] Last Admin: 01/01/17 02:27 Dose: 75 mls/hr Lactated Ringer's (Ringers, Lactated) Confirm Administered Dose 1,000 mls @ as directed .ROUTE .[facility] ONE Stop: 01/01/17 14:03 Last Admin: 01/01/17 15:45 Dose: 1,000 ml Lidocaine HCl (Xylocaine-Mpf 1%) Confirm Administered Dose 4 mls @ as directed .ROUTE .[facility] ONE Stop: 01/01/17 15:52 Influenza Virus Vaccine (Fluzone/Fluarix Vaccine) 60 mcg IM .ONCE ONE Stop: 01/02/17 07:53 Last Admin: 01/02/17 18:08 Dose: 60 mcg Insulin Aspart (Novolog) 0 unit SUBCUT QIDACANDBED [facility] PRN Reason: Protocol Last Admin: 01/02/17 12:56 Dose: 1 units Metformin HCl (Glucophage) 500 mg PO BIDMEALS [facility] Metformin HCl (Glucophage) 500 mg PO ONETIME ONE Stop: 01/02/17 11:01 Last Admin: 01/02/17 11:29 Dose: 500 mg Multivitamins (Thera) 1 each PO DAILY [facility] Last Admin: 01/02/17 11:24 Dose: 1 each Non-Formulary Medication (Alendronate Sodium) 70 mg PO WEEKLY [facility] Ondansetron HCl (Zofran) 4 mg IVPUSH ONETIME ONE Stop: 12/30/16 16:14 Last Admin: 12/30/16 16:25 Dose: 4 mg Pantoprazole Sodium (Protonix Iv) 40 mg IVPUSH ONETIME ONE Stop: 12/30/16 16:14 Last Admin: 12/30/16 16:28 Dose: 40 mg Pantoprazole Sodium (Protonix Iv) 40 mg IVPUSH Q12H [facility] Last Admin: 01/02/17 15:08 Dose: 40 mg Pneumococcal 13-Valent Conj Vacc (Prevnar 13) 0.5 ml IM .ONCE ONE Stop: 01/02/17 07:54 Last Admin: 01/02/17 18:00 Dose: 0.5 ml Propofol (Diprivan 20 Ml) Confirm Administered Dose 200 mg .ROUTE .STK-MED ONE Stop: 01/01/17 15:51 Rivaroxaban (Xarelto) 20 mg PO DAILY [facility] Rosuvastatin Calcium (Crestor) 10 mg PO DAILY [facility] Last Admin: 01/02/17 08:38 Dose: 10 mg Sertraline HCl (Zoloft) 100 mg PO DAILY [facility] - Plan Plan:: The patient has extremely poor short term memory, on multiple occasions forgot the two physicians of record, Zhou Duff and Franco. At this time, would recommend that the patient not be allowed to drive. She is medically unfit.
--- NOTE | 2017-01-02 15:36 | PCM.DCSUM1 ---
Discharge Summary - Hospital Course Free Text/Narrative:: 76 year old female sent from her PCP, Della Dial's office after presentation of dizziness with hematemesis. Had staretd xarelto 20 mg for LLE DVT. Also appears to use NSAIDS as needed for discomfort. There is no previous history of GI bleed. Documentation from the PCP's office: WBC 16.5/Hgb 12.1/Plt 241. She has also been considered pre-diabetic based on PMH, BS with CMP, 270. LFTs are within normal limits; renal function consistent with CKD III, GFR 48. A UA supports a UTI, will start rocephin. 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 Denies chest pain , shortness of breath and diaphoresis. Vomitus described as a clot. GI history includes colonoscopy, with a documented polyp. The re has been no prior history of an UGI disorder. The patient had been started on IVF in the PCP's office, this has been continued in the ED. Patient is admitted to medical surgical floor. Dr. Gamez is consulted. EGD was performed, with findings of gastric ulcer, not actively bleeding and gastritis. She is started on PPI therapy, no further NSAIDS (she was using motrin 3-4 times daily). She refused xarelto so was then transitioned to eliquis after procedure for DVT treatment. She did well otherwise postoperatively. She does have noted cognitive impairment; short term memory loss which is of concern to staff and to family. It is recommended no driving until further evaluation with Neurology; appt has been arranged as outpatient. She is discharged home with follow up with Dr. Gamez in 2 weeks, Neurology consult and f/up with PCP within 5-7 days of discharge. - Discharge Data Discharge Date: 01/02/17 Discharge Disposition: Home, Self-Care 01 Condition: Good - Discharge Diagnosis/Problem(s) (1) Gastric hemorrhage SNOMED Code(s): 47521832 ICD Code: K92.2 - GASTROINTESTINAL HEMORRHAGE, UNSPECIFIED Status: Acute Priority: High (2) Anemia SNOMED Code(s): 214663611 Status: Acute Priority: High Qualifiers: Anemia type: unspecified type Qualified Code(s): D64.9 - Anemia, unspecified (3) Hyperglycemia due to type 2 diabetes mellitus SNOMED Code(s): 574988050203489, 546666746730111 ICD Code: E11.65 - TYPE 2 DIABETES MELLITUS WITH HYPERGLYCEMIA Status: Acute Priority: High Qualifiers: Diabetes mellitus intermediate card tender insulin use: without intermediate card tender use Qualified Code(s): E11.65 - Type 2 diabetes mellitus with hyperglycemia (4) Memory loss SNOMED Code(s): 28935665 ICD Code: R41.3 - OTHER AMNESIA Status: Acute Priority: High Problem Details: acute on chronic - Patient Summary/Data Operative Procedure(s) Performed: Dx EGD w/ CF bx Complications: None Consults: Consultations 12/30/16 18:10 Consult to Physician [CONS] Routine 12/31/16 09:00 Consult to Clerk Carrier [Consult to Diabetic Nurse Specialist] [CONS] Routine Consult to Occupational Therapy [OT Evaluation and Treatment] [CONS] Routine Consult to Physical Therapy [PT Evaluation and Treatment] [CONS] Routine 12/31/16 10:00 Consult to Electronics Manufacturer [CONS] Routine 12/31/16 10:31 Consult to Kitchen Lead [CONS] Routine 12/31/16 11:53 FIREWALL ENGINEER Evaluation and Treatment [CONS] Routine Labs Pending at D/C: None Recommended Follow-up Testing/Procedures: Follow up with PCP within 5-7 days of discharge. Follow up with Neurology/consult for memory loss/dementia evaluation. Planned Operative Procedure(s) after DC: None Hospital Course: As above - Patient Instructions Diet: Heart Healthy Diet Activity: As Tolerated Driving: Do Not Drive Showering/Bathing: May Shower Notify Provider of: Fever, Increased Pain, Swelling and Redness, Nausea and/or Vomiting (worsening memory loss) - Discharge Plan Prescriptions/Med Rec: Apixaban [Eliquis] 5 mg PO BID #60 tablet Ascorbic Acid [Vitamin C] 500 mg PO DAILY #30 tablet Ferrous Sulfate 325 mg PO DAILY #30 tablet metFORMIN [Glucophage] 500 mg PO BIDMEALS #60 tablet Home Medications: Home Meds Alendronate Sodium [Alendronate] 70 mg PO WEEKLY 12/30/16 [History] Amitriptyline [Elavil] 25 mg PO BEDTIME 12/30/16 [History] Calcium Carbonate 1,200 mg PO DAILY 12/30/16 [History] Docusate Sodium 100 mg PO BEDTIME 12/30/16 [History] Enalapril Maleate 20 mg PO DAILY 12/30/16 [History] Multivits-Min/Iron/FA/Lutein [Centrum Silver Women Tablet] 1 each PO DAILY 12/30 [History] Sertraline HCl 100 mg PO DAILY 12/30/16 [History] atorvaSTATin Calcium [Atorvastatin Calcium] 40 mg PO DAILY 12/30/16 [History] Apixaban [Eliquis] 5 mg PO BID #60 tablet 01/02/17 [Rx] Ascorbic Acid [Vitamin C] 500 mg PO DAILY #30 tablet 01/02/17 [Rx] Ferrous Sulfate 325 mg PO DAILY #30 tablet 01/02/17 [Rx] metFORMIN [Glucophage] 500 mg PO BIDMEALS #60 tablet 01/02/17 [Rx] Patient Handouts: Type 2 Diabetes Mellitus, Adult, Gastrointestinal Bleeding, [id number] Forms: ED Department Discharge Referrals: Martin Perez MD [Ordering Only Provider] - 04/16/17 10:00 am (Appointment with Dr Perez April 16 (fri) 1100 CT, at [facility] in the [facility] on [address] [place] [address]) Miguel Bond MD [Physician] - 01/09/17 1:00 pm (Please see Dr. Bond for follow- up appointment) Ovidio Godoy [Physician] - - Discharge Summary/Plan Comment DC Time >30 min.: Yes (40 min) - General Info Date of Service: 01/02/17 Admission Dx/Problem (Free Text: GI bleed Patient doing well this morning. Denies c/o pain/discomfort. Slept well. VSS, afebrile overnight. Continues to have difficulty with short term memory. States to me this morning "I haven't any idea who this Dr. Duff is that tells me I can't drive", "what can I do about this, who else can I talk to", "I want some examples of why they tell me I can't drive". I review with her many conversations of memory lapses just since her hospital stay. She is unaware and no recollection of most of these instances. She does not remember me from visiting with her yesterday. She and family refuse xarelto and wish eliquis for blood thinner. Despite conversations with Dr. Duff and Dr. Gamez that the xarelto did not cause her GI bleed but only contributed to the bleeding, she would like to be on a "different one". Plan will be for her to dc home on eliquis. Today when I ask patient about her PCP she is unsure. Previously I had been told Della Temple, but today patient states "I don't know, it's her or her look a like", she could not recall another providers name as to who that may be. Functional Status: Reports: pain controlled, tolerating diet, ambulating, urinating. Denies: new symptoms - Review of Systems General: Reports: No Symptoms HEENT: Reports: no symptoms Pulmonary: Reports: no symptoms Cardiovascular: Reports: No Symptoms Gastrointestinal: Reports: No symptoms. Denies: Abdominal pain, Nausea, Vomiting Genitourinary: Reports: no symptoms Musculoskeletal: Reports: no symptoms Skin: Reports: no symptoms Neurological: Reports: No Symptoms Psychiatric: Reports: no symptoms - Patient Data Vitals - Most Recent: Last Vital Signs Temp 99.0 F 01/02/17 11:11 Pulse 82 01/02/17 11:11 Resp 18 01/02/17 11:11 BP 127/97 H 01/02/17 11:11 Pulse Ox 98 01/02/17 11:11 Weight - Most Recent: 168 lb 14.4 oz I&O - Last 24 hours: Intake & Output 01/02/17 01/02/17 01/02/17 06:59 14:59 22:59 Intake Total 600 705 Output Total 950 Balance -350 705 Lab Results - Last 24 hrs: Laboratory Results - last 24 hr 01/01/17 01/01/17 01/02/17 Range/Units 17:23 20:13 06:10 WBC (3.98-10.04) K/mm3 RBC (3.98-5.22) M/mm3 Hgb (11.2-15.7) gm/L Hct (34.1-44.9) % MCV (79.4-94.8) fl MCH (25.6-32.2) pg MCHC (32.2-35.5) g/dl RDW Std Deviation (36.4-46.3) fL Plt Count (182-369) K/mm3 MPV (9.4-12.3) fl Neut % (Auto) (34.0-71.1) % Lymph % (Auto) (19.3-51.7) % [place] % (Auto) (4.7-12.5) % Eos % (Auto) (0.7-5.8) Baso % (Auto) (0.1-1.2) % Neut # (Auto) (1.56-6.13) K/mm3 Lymph # (Auto) (1.18-3.74) K/mm3 [place] # (Auto) (0.24-0.36) K/mm3 Eos # (Auto) (0.04-0.36) K/mm3 Baso # (Auto) (0.01-0.08) K/mm3 Sodium 143 (136-145) mEq/L Potassium 3.6 (3.5-5.1) mEq/L Chloride 108 H (98-107) mEq/L Carbon Dioxide 25 (21-32) mEq/L Anion Gap 13.6 (5-15) BUN 9 (7-18) mg/dL Creatinine 0.8 (0.55-1.02) mg/dL Est Cr Clr Drug Dosing 50.26 mL/min Estimated GFR (MDRD) > 60 (>60) mL/min BUN/Creatinine Ratio 11.3 L (14-18) Glucose 127 H (83-115) mg/dL POC Glucose 99 180 H (83-110) mg/dL Calcium 8.3 L (8.5-10.1) mg/dL 01/02/17 01/02/17 01/02/17 Range/Units 06:10 06:19 10:46 WBC 7.00 (3.98-10.04) K/mm3 RBC 2.85 L (3.98-5.22) M/mm3 Hgb 8.4 L 9.4 L (11.2-15.7) gm/L Hct 27.0 L (34.1-44.9) % MCV 94.7 (79.4-94.8) fl MCH 29.5 (25.6-32.2) pg MCHC 31.1 L (32.2-35.5) g/dl RDW Std Deviation 47.3 H (36.4-46.3) fL Plt Count 142 L (182-369) K/mm3 MPV 12.3 (9.4-12.3) fl Neut % (Auto) 59.2 (34.0-71.1) % Lymph % (Auto) 24.7 (19.3-51.7) % [place] % (Auto) 10.3 (4.7-12.5) % Eos % (Auto) 4.6 (0.7-5.8) Baso % (Auto) 0.6 (0.1-1.2) % Neut # (Auto) 4.15 (1.56-6.13) K/mm3 Lymph # (Auto) 1.73 (1.18-3.74) K/mm3 [place] # (Auto) 0.72 H (0.24-0.36) K/mm3 Eos # (Auto) 0.32 (0.04-0.36) K/mm3 Baso # (Auto) 0.04 (0.01-0.08) K/mm3 Sodium (136-145) mEq/L Potassium (3.5-5.1) mEq/L Chloride (98-107) mEq/L Carbon Dioxide (21-32) mEq/L Anion Gap (5-15) BUN (7-18) mg/dL Creatinine (0.55-1.02) mg/dL Est Cr Clr Drug Dosing mL/min Estimated GFR (MDRD) (>60) mL/min BUN/Creatinine Ratio (14-18) Glucose (83-115) mg/dL POC Glucose 119 H (83-110) mg/dL Calcium (8.5-10.1) mg/dL 01/02/17 Range/Units 11:22 WBC (3.98-10.04) K/mm3 RBC (3.98-5.22) M/mm3 Hgb (11.2-15.7) gm/L Hct (34.1-44.9) % MCV (79.4-94.8) fl MCH (25.6-32.2) pg MCHC (32.2-35.5) g/dl RDW Std Deviation (36.4-46.3) fL Plt Count (182-369) K/mm3 MPV (9.4-12.3) fl Neut % (Auto) (34.0-71.1) % Lymph % (Auto) (19.3-51.7) % [place] % (Auto) (4.7-12.5) % Eos % (Auto) (0.7-5.8) Baso % (Auto) (0.1-1.2) % Neut # (Auto) (1.56-6.13) K/mm3 Lymph # (Auto) (1.18-3.74) K/mm3 [place] # (Auto) (0.24-0.36) K/mm3 Eos # (Auto) (0.04-0.36) K/mm3 Baso # (Auto) (0.01-0.08) K/mm3 Sodium (136-145) mEq/L Potassium (3.5-5.1) mEq/L Chloride (98-107) mEq/L Carbon Dioxide (21-32) mEq/L Anion Gap (5-15) BUN (7-18) mg/dL Creatinine (0.55-1.02) mg/dL Est Cr Clr Drug Dosing mL/min Estimated GFR (MDRD) (>60) mL/min BUN/Creatinine Ratio (14-18) Glucose (83-115) mg/dL POC Glucose 160 H (83-110) mg/dL Calcium (8.5-10.1) mg/dL Med Orders - Current: Current Medications Amitriptyline HCl (Elavil) 25 mg PO BEDTIME [facility] Last Admin: 01/01/17 20:09 Dose: 25 mg Apixaban (Eliquis) 5 mg PO BID [facility] Last Admin: 01/02/17 11:24 Dose: 5 mg Ascorbic Acid (Vitamin C) 500 mg PO DAILY [facility] Last Admin: 01/02/17 11:23 Dose: 500 mg Calcium Carbonate/Glycine (Calcium Carbonate) 1,200 mg PO DAILY [facility] Last Admin: 01/02/17 11:23 Dose: 1,200 mg Docusate Sodium (Colace) 100 mg PO BEDTIME [facility] Enalapril Maleate (Vasotec) 10 mg PO BID [facility] Last Admin: 01/02/17 08:39 Dose: 10 mg Ferrous Sulfate (Ferrous Sulfate) 325 mg PO DAILY [facility] Last Admin: 01/02/17 11:24 Dose: 325 mg Insulin Aspart (Novolog) 0 unit SUBCUT QIDACANDBED [facility] PRN Reason: Protocol Last Admin: 01/02/17 12:56 Dose: 1 units Metformin HCl (Glucophage) 500 mg PO BIDMEALS [facility] Multivitamins (Thera) 1 each PO DAILY [facility] Last Admin: 01/02/17 11:24 Dose: 1 each Pantoprazole Sodium (Protonix Iv) 40 mg IVPUSH Q12H [facility] Last Admin: 01/02/17 15:08 Dose: 40 mg Rosuvastatin Calcium (Crestor) 10 mg PO DAILY [facility] Last Admin: 01/02/17 08:38 Dose: 10 mg Sertraline HCl (Zoloft) 100 mg PO DAILY [facility] Discontinued Medications Diphtheria/Tetanus/Acell Pertussis (Boostrix) 0.5 ml IM .ONCE ONE Stop: 01/02/17 07:53 Famotidine (Pepcid) 20 mg PO ONETIME ONE Stop: 12/30/16 16:14 Last Admin: 12/30/16 16:24 Dose: 20 mg Fentanyl (Sublimaze) Confirm Administered Dose 100 mcg .ROUTE .STK-MED ONE Stop: 01/01/17 15:51 Ceftriaxone Sodium 1 gm/ (Sodium Chloride) 100 mls @ 200 mls/hr IV Q24H [facility] Last Admin: 01/01/17 20:09 Dose: 200 mls/hr Sodium Chloride (Sodium Chloride 0.45%) 1,000 mls @ 75 mls/hr IV ASDIRECTED [facility] Last Admin: 01/01/17 02:27 Dose: 75 mls/hr Lactated Ringer's (Ringers, Lactated) Confirm Administered Dose 1,000 mls @ as directed .ROUTE .STK-MED ONE Stop: 01/01/17 14:03 Last Admin: 01/01/17 15:45 Dose: 1,000 ml Lidocaine HCl (Xylocaine-Mpf 1%) Confirm Administered Dose 4 mls @ as directed .ROUTE .STK-MED ONE Stop: 01/01/17 15:52 Influenza Virus Vaccine (Fluzone/Fluarix Vaccine) 60 mcg IM .ONCE ONE Stop: 01/02/17 07:53 Metformin HCl (Glucophage) 500 mg PO ONETIME ONE Stop: 01/02/17 11:01 Last Admin: 01/02/17 11:29 Dose: 500 mg Non-Formulary Medication (Alendronate Sodium) 70 mg PO WEEKLY [facility] Ondansetron HCl (Zofran) 4 mg IVPUSH ONETIME ONE Stop: 12/30/16 16:14 Last Admin: 12/30/16 16:25 Dose: 4 mg Pantoprazole Sodium (Protonix Iv) 40 mg IVPUSH ONETIME ONE Stop: 12/30/16 16:14 Last Admin: 12/30/16 16:28 Dose: 40 mg Pneumococcal 13-Valent Conj Vacc (Prevnar 13) 0.5 ml IM .ONCE ONE Stop: 01/02/17 07:54 Propofol (Diprivan 20 Ml) Confirm Administered Dose 200 mg .ROUTE .STK-MED ONE Stop: 01/01/17 15:51 Rivaroxaban (Xarelto) 20 mg PO DAILY [facility] - Exam Quality Assessment: Reports: DVT prophylaxis General: Reports: alert, oriented, cooperative, no acute distress HEENT: Reports: Pupils equal, Pupils reactive, EOMI, Mucous membr. moist/pink Neck: Reports: supple Lungs: Reports: Clear to auscultation, Normal respiratory effort Cardiovascular: Reports: Regular Rate, Regular Rhythm Abdomen: Reports: bowel sounds present, soft, no tenderness, no distension. Denies: rebound, guarding, tenderness (Female) Exam: Deferred Rectal (Female) Exam: Deferred Extremities: Reports: no edema, no calf tenderness Neurological: Reports: no new focal deficit, cranial nerves intact, other ( short term memory loss). Denies: normal speech, normal tone Psy/Mental Status: Reports: alert, normal affect, normal mood, other (mild aggitation when discussing short term memory loss) *Q Meaningful Use (DIS) - VTE *Q VTE Criteria *Q: - Stroke *Q Stroke Criteria *Q: - AMI *Q AMI Criteria *Q:
[2017-01-02 16:18] VITALS: BP 141/69
[2017-01-02] MEDS ORDERED: metFORMIN 500 MG Tab PO SCH (17:00)
--- NOTE | 2017-01-02 17:21 | PCM.CONSN ---
- General Info Date of Service: 01/02/17 - Review of Systems Systems Review Comment:: Stable overnight. No complaints. - Patient Data Vitals - most recent: Last Vital Signs Temp 99.3 F 01/02/17 16:14 Pulse 92 01/02/17 16:14 Resp 17 01/02/17 16:14 BP 141/69 H 01/02/17 16:14 Pulse Ox 98 01/02/17 16:14 Weight - most recent: 168 lb 14.4 oz I&O - last 24 hours: Intake & Output 01/02/17 01/02/17 01/02/17 06:59 14:59 22:59 Intake Total 600 705 500 Output Total 950 850 Balance -350 705 -350 Lab Results last 24 hrs: Laboratory Results - last 24 hr 01/01/17 01/01/17 01/02/17 Range/Units 17:23 20:13 06:10 WBC (3.98-10.04) K/mm3 RBC (3.98-5.22) M/mm3 Hgb (11.2-15.7) gm/L Hct (34.1-44.9) % MCV (79.4-94.8) fl MCH (25.6-32.2) pg MCHC (32.2-35.5) g/dl RDW Std Deviation (36.4-46.3) fL Plt Count (182-369) K/mm3 MPV (9.4-12.3) fl Neut % (Auto) (34.0-71.1) % Lymph % (Auto) (19.3-51.7) % [place] % (Auto) (4.7-12.5) % Eos % (Auto) (0.7-5.8) Baso % (Auto) (0.1-1.2) % Neut # (Auto) (1.56-6.13) K/mm3 Lymph # (Auto) (1.18-3.74) K/mm3 [place] # (Auto) (0.24-0.36) K/mm3 Eos # (Auto) (0.04-0.36) K/mm3 Baso # (Auto) (0.01-0.08) K/mm3 Sodium 143 (136-145) mEq/L Potassium 3.6 (3.5-5.1) mEq/L Chloride 108 H (98-107) mEq/L Carbon Dioxide 25 (21-32) mEq/L Anion Gap 13.6 (5-15) BUN 9 (7-18) mg/dL Creatinine 0.8 (0.55-1.02) mg/dL Est Cr Clr Drug Dosing 50.26 mL/min Estimated GFR (MDRD) > 60 (>60) mL/min BUN/Creatinine Ratio 11.3 L (14-18) Glucose 127 H (83-115) mg/dL POC Glucose 99 180 H (83-110) mg/dL Calcium 8.3 L (8.5-10.1) mg/dL 01/02/17 01/02/17 01/02/17 Range/Units 06:10 06:19 10:46 WBC 7.00 (3.98-10.04) K/mm3 RBC 2.85 L (3.98-5.22) M/mm3 Hgb 8.4 L 9.4 L (11.2-15.7) gm/L Hct 27.0 L (34.1-44.9) % MCV 94.7 (79.4-94.8) fl MCH 29.5 (25.6-32.2) pg MCHC 31.1 L (32.2-35.5) g/dl RDW Std Deviation 47.3 H (36.4-46.3) fL Plt Count 142 L (182-369) K/mm3 MPV 12.3 (9.4-12.3) fl Neut % (Auto) 59.2 (34.0-71.1) % Lymph % (Auto) 24.7 (19.3-51.7) % [place] % (Auto) 10.3 (4.7-12.5) % Eos % (Auto) 4.6 (0.7-5.8) Baso % (Auto) 0.6 (0.1-1.2) % Neut # (Auto) 4.15 (1.56-6.13) K/mm3 Lymph # (Auto) 1.73 (1.18-3.74) K/mm3 [place] # (Auto) 0.72 H (0.24-0.36) K/mm3 Eos # (Auto) 0.32 (0.04-0.36) K/mm3 Baso # (Auto) 0.04 (0.01-0.08) K/mm3 Sodium (136-145) mEq/L Potassium (3.5-5.1) mEq/L Chloride (98-107) mEq/L Carbon Dioxide (21-32) mEq/L Anion Gap (5-15) BUN (7-18) mg/dL Creatinine (0.55-1.02) mg/dL Est Cr Clr Drug Dosing mL/min Estimated GFR (MDRD) (>60) mL/min BUN/Creatinine Ratio (14-18) Glucose (83-115) mg/dL POC Glucose 119 H (83-110) mg/dL Calcium (8.5-10.1) mg/dL 01/02/17 Range/Units 11:22 WBC (3.98-10.04) K/mm3 RBC (3.98-5.22) M/mm3 Hgb (11.2-15.7) gm/L Hct (34.1-44.9) % MCV (79.4-94.8) fl MCH (25.6-32.2) pg MCHC (32.2-35.5) g/dl RDW Std Deviation (36.4-46.3) fL Plt Count (182-369) K/mm3 MPV (9.4-12.3) fl Neut % (Auto) (34.0-71.1) % Lymph % (Auto) (19.3-51.7) % [place] % (Auto) (4.7-12.5) % Eos % (Auto) (0.7-5.8) Baso % (Auto) (0.1-1.2) % Neut # (Auto) (1.56-6.13) K/mm3 Lymph # (Auto) (1.18-3.74) K/mm3 [place] # (Auto) (0.24-0.36) K/mm3 Eos # (Auto) (0.04-0.36) K/mm3 Baso # (Auto) (0.01-0.08) K/mm3 Sodium (136-145) mEq/L Potassium (3.5-5.1) mEq/L Chloride (98-107) mEq/L Carbon Dioxide (21-32) mEq/L Anion Gap (5-15) BUN (7-18) mg/dL Creatinine (0.55-1.02) mg/dL Est Cr Clr Drug Dosing mL/min Estimated GFR (MDRD) (>60) mL/min BUN/Creatinine Ratio (14-18) Glucose (83-115) mg/dL POC Glucose 160 H (83-110) mg/dL Calcium (8.5-10.1) mg/dL Med Orders - Current: Current Medications Amitriptyline HCl (Elavil) 25 mg PO BEDTIME [facility] Last Admin: 01/01/17 20:09 Dose: 25 mg Apixaban (Eliquis) 5 mg PO BID [facility] Last Admin: 01/02/17 11:24 Dose: 5 mg Ascorbic Acid (Vitamin C) 500 mg PO DAILY [facility] Last Admin: 01/02/17 11:23 Dose: 500 mg Calcium Carbonate/Glycine (Calcium Carbonate) 1,200 mg PO DAILY [facility] Last Admin: 01/02/17 11:23 Dose: 1,200 mg Docusate Sodium (Colace) 100 mg PO BEDTIME [facility] Enalapril Maleate (Vasotec) 10 mg PO BID [facility] Last Admin: 01/02/17 08:39 Dose: 10 mg Ferrous Sulfate (Ferrous Sulfate) 325 mg PO DAILY [facility] Last Admin: 01/02/17 11:24 Dose: 325 mg Insulin Aspart (Novolog) 0 unit SUBCUT QIDACANDBED [facility] PRN Reason: Protocol Last Admin: 01/02/17 12:56 Dose: 1 units Metformin HCl (Glucophage) 500 mg PO BIDMEALS [facility] Multivitamins (Thera) 1 each PO DAILY [facility] Last Admin: 01/02/17 11:24 Dose: 1 each Pantoprazole Sodium (Protonix Iv) 40 mg IVPUSH Q12H [facility] Last Admin: 01/02/17 15:08 Dose: 40 mg Rosuvastatin Calcium (Crestor) 10 mg PO DAILY [facility] Last Admin: 01/02/17 08:38 Dose: 10 mg Sertraline HCl (Zoloft) 100 mg PO DAILY [facility] Discontinued Medications Diphtheria/Tetanus/Acell Pertussis (Boostrix) 0.5 ml IM .ONCE ONE Stop: 01/02/17 07:53 Famotidine (Pepcid) 20 mg PO ONETIME ONE Stop: 12/30/16 16:14 Last Admin: 03/27/17 16:24 Dose: 20 mg Fentanyl (Sublimaze) Confirm Administered Dose 100 mcg .ROUTE .STK-MED ONE Stop: 01/01/17 15:51 Ceftriaxone Sodium 1 gm/ (Sodium Chloride) 100 mls @ 200 mls/hr IV Q24H [facility] Last Admin: 01/01/17 20:09 Dose: 200 mls/hr Sodium Chloride (Sodium Chloride 0.45%) 1,000 mls @ 75 mls/hr IV ASDIRECTED [facility] Last Admin: 01/01/17 02:27 Dose: 75 mls/hr Lactated Ringer's (Ringers, Lactated) Confirm Administered Dose 1,000 mls @ as directed .ROUTE [facility] ONE Stop: 01/01/17 14:03 Last Admin: 01/01/17 15:45 Dose: 1,000 ml Lidocaine HCl (Xylocaine-Mpf 1%) Confirm Administered Dose 4 mls @ as directed .ROUTE .[facility] ONE Stop: 01/01/17 15:52 Influenza Virus Vaccine (Fluzone/Fluarix Vaccine) 60 mcg IM .ONCE ONE Stop: 01/02/17 07:53 Metformin HCl (Glucophage) 500 mg PO ONETIME ONE Stop: 01/02/17 11:01 Last Admin: 01/02/17 11:29 Dose: 500 mg Non-Formulary Medication (Alendronate Sodium) 70 mg PO WEEKLY [facility] Ondansetron HCl (Zofran) 4 mg IVPUSH ONETIME ONE Stop: 12/30/16 16:14 Last Admin: 12/30/16 16:25 Dose: 4 mg Pantoprazole Sodium (Protonix Iv) 40 mg IVPUSH ONETIME ONE Stop: 12/30/16 16:14 Last Admin: 12/30/16 16:28 Dose: 40 mg Pneumococcal 13-Valent Conj Vacc (Prevnar 13) 0.5 ml IM .ONCE ONE Stop: 01/02/17 07:54 Propofol (Diprivan 20 Ml) Confirm Administered Dose 200 mg .ROUTE .STK-MED ONE Stop: 01/01/17 15:51 Rivaroxaban (Xarelto) 20 mg PO DAILY [facility] - Exam General: alert, oriented, cooperative, no acute distress Lungs: Clear to auscultation, Normal respiratory effort Cardiovascular: Regular Rate, Regular Rhythm Abdomen: soft, no distension, tenderness (very mild epigastric TTP ) Skin: warm, dry, intact Neurological: no new focal deficit Consult PN Assessment/Plan Procedures: Procedures ASSAY THYROID STIM HORMONE (08/13/16) C-REACTIVE PROTEIN (11/19/16) COMP SCREEN MAMMOGRAM ADD-ON (02/09/16) COMPLETE CBC AUTOMATED (08/13/16) COMPLETE CBC W/AUTO DIFF WBC (11/19/16) COMPREHEN METABOLIC PANEL (08/13/16) DXA BONE DENSITY AXIAL (03/05/16) EXTRACRANIAL BILAT STUDY (08/13/16) EXTREMITY STUDY (11/22/16) LIPID PANEL (08/13/16) MANUAL THERAPY 1/> REGIONS (03/22/15) METABOLIC PANEL TOTAL CA (11/19/16) MRI JOINT UPR EXTREM W/O DYE (12/18/15) MRI NECK SPINE W/O DYE (01/03/16) OCCULT BLD FECES 1-3 TESTS (03/28/14) PT EVALUATION (02/02/15) ROUTINE VENIPUNCTURE (11/19/16) THERAPEUTIC EXERCISES (03/22/15) ULTRASOUND THERAPY (03/22/15) URINALYSIS AUTO W/O SCOPE (08/13/16) X-RAY EXAM NECK SPINE 2-3 VW (01/25/15) X-RAY EXAM OF SHOULDER (01/25/15) (1) Memory loss SNOMED Code(s): 87308364 Code(s): R41.3 - OTHER AMNESIA Priority: High Comment: acute on chronic (2) Blood clot in vein SNOMED Code(s): 813287962 Code(s): I82.90 - ACUTE EMBOLISM AND THROMBOSIS OF UNSPECIFIED VEIN (3) Gastric hemorrhage SNOMED Code(s): 60053385 Code(s): K92.2 - GASTROINTESTINAL HEMORRHAGE, UNSPECIFIED Priority: High Problem List Initiated/Reviewed/Updated: Yes Plan: 76-year-old woman with GI hemorrhage (maroon stools and coffee-ground emesis), apparently new diagnosis of memory loss, and recent diagnosis of blood clot EGD yesterday with gastric ulcer, non-bleeding Continue PPI Follow up in 1-2 weeks in my office No evidence of ongoing bleeding at this time US with small non-occlusive clot - D/W Dr. Duff
[2017-01-02] MEDS ORDERED: Docusate Sodium 100 MG Cap PO SCH (21:00)
[2017-01-03] MEDS ORDERED: Sertraline 50 MG Tab PO SCH (11:00)
== END 2017-01-02 18:20 | disposition home or self-care (01) | DRG 378 ==
LOC: JD.ED 14:29 → JD.MS 16:27
PROVIDERS: ADMIT Internal Medicine Cardiovascular Disease; ATTEND Internal Medicine Cardiovascular Disease
PROC: 0DB38ZX Excision of Lower Esophagus, Via Natural or Artificial Opening Endoscopic, Diagnostic (ICD-10-PCS; principal; 2017-01-01)
PROC: 0DB88ZX Excision of Small Intestine, Via Natural or Artificial Opening Endoscopic, Diagnostic (ICD-10-PCS; 2017-01-01)
PROC: 0DB68ZX Excision of Stomach, Via Natural or Artificial Opening Endoscopic, Diagnostic (ICD-10-PCS; 2017-01-01)
DX: K92.2 Gastrointestinal hemorrhage, unspecified (principal); N39.0 Urinary tract infection, site not specified; K25.9 Gastric ulcer, unspecified as acute or chronic, without hemorrhage or perforation; E11.65 Type 2 diabetes mellitus with hyperglycemia; D64.9 Anemia, unspecified; K58.9 Irritable bowel syndrome, unspecified; F03.90 Unspecified dementia, unspecified severity, without behavioral disturbance, psychotic disturbance, mood disturbance, and anxiety; Z86.718 Personal history of other venous thrombosis and embolism; Z79.01 Long term (current) use of anticoagulants; R41.3 Other amnesia; I83.90 Asymptomatic varicose veins of unspecified lower extremity; F32.9 Major depressive disorder, single episode, unspecified; M79.7 Fibromyalgia; N39.3 Stress incontinence (female) (male); E78.5 Hyperlipidemia, unspecified; Z86.010 Personal history of colon polyps; K62.4 Stenosis of anus and rectum; E78.00 Pure hypercholesterolemia, unspecified; G31.84 Mild cognitive impairment of uncertain or unknown etiology; F02.80 Dementia in other diseases classified elsewhere, unspecified severity, without behavioral disturbance, psychotic disturbance, mood disturbance, and anxiety; I12.9 Hypertensive chronic kidney disease with stage 1 through stage 4 chronic kidney disease, or unspecified chronic kidney disease; N18.3 Chronic kidney disease, stage 3 (moderate); Z79.899 Other long term (current) drug therapy; Z23 Encounter for immunization; R73.09 Other abnormal glucose
CPT/HCPCS: 99285; 96374; 85025; 85018; 85730; 85610; 81001; 36415; 80053; 83036; A9270; J2405; 70450; 70450-26; 80048; 82607; 82746; 82962; 83735; 84443; 86677; 87086; 88305; 90471; 90472; 90670; 90686; 90715; 93005; 93971-26-LT; 93971-LT; 96125-GN; 96375; 97161-GP; 97165-GO; 99215; C9113; G0008; G0009; J0696; J1815-GY; J2704; J3010; J7030; J7120

== ENCOUNTER 2017-08-25 13:26 | Emergency (ER) | payer MEDICARE, OTHER ==
[2017-08-25 14:09] VITALS: BP 98/67
[2017-08-25] MEDS ORDERED: Sodium Chloride 0.9% 10 ML Syringe FLUSH PRN (14:29)
[2017-08-25] MEDS ORDERED: Sodium Chloride 0.9% 1,000 ML IV SCH (14:45)
[2017-08-25] MEDS ORDERED: Sodium Chloride 0.9% 500 ML IV ONE (15:56)
--- NOTE | 2017-08-25 16:49 | EDM.PDOC ---
ED HPI GENERAL MEDICAL PROBLEM - General Chief Complaint: General Stated Complaint: PT ACCIDENTALLY TOOK WRONG MEDS Time Seen by Provider: 08/25/17 14:26 Source of Information: Reports: Patient, RN Notes Reviewed - History of Present Illness INITIAL COMMENTS - FREE TEXT/NARRATIVE: 76 year old female who lives at [facility] accidentally ingested a different resident's medications this past morning. These include atenolol 50 mg, isosoribed 30 mg, losartan-HCTZ 100-12.5, triamterene/HCTZ, Her BP's have been low today but she does often run low. She feels fine. No unusual weakness or dizzness. No chest pain or difficulty breathing. - Related Data Allergies Allergy/AdvReac Type Severity Reaction Status Date / Time morphine Allergy Nausea Verified 08/25/17 14:09 Home Meds: Home Meds Amitriptyline [Elavil] 25 mg PO BEDTIME 12/30/16 [History] Multivits-Min/Iron/FA/Lutein [Centrum Silver Women Tablet] 1 each PO DAILY 12/30 [History] Sertraline HCl 100 mg PO DAILY 12/30/16 [History] Apixaban [Eliquis] 5 mg PO BID #60 tablet 01/02/17 [Rx] Ascorbic Acid [Vitamin C] 500 mg PO DAILY #30 tablet 01/02/17 [Rx] metFORMIN [Glucophage] 500 mg PO BIDMEALS #60 tablet 01/02/17 [Rx] Acetaminophen [Tylenol] 2 tab PO Q6H PRN 08/25/17 [History] Alendronate Sodium [Fosamax] 70 mg PO WEEKLY 08/25/17 [History] Donepezil [Aricept] 5 mg PO BEDTIME 08/25/17 [History] Enalapril Maleate [Vasotec] 20 mg PO DAILY 08/25/17 [History] Hydrochlorothiazide 12.5 mg PO DAILY 08/25/17 [History] Oxybutynin Chloride [Ditropan Xl] 10 mg PO DAILY 08/25/17 [History] Pantoprazole Sodium [Protonix] 40 mg PO DAILY 08/25/17 [History] atorvaSTATin [Lipitor] 40 mg PO BEDTIME 08/25/17 [History] Past Medical History HEENT History: Reports: Cataract, Impaired Vision Cardiovascular History: Reports: High Cholesterol, Hypertension Gastrointestinal History: Reports: Colon Polyp, Irritable Bowel Syndrome, Other (See Below) Other Gastrointestinal History: stenosis of rectum and anus, adenoma Genitourinary History: Reports: Urinary Incontinence, Other (See Below) Other Genitourinary History: overactive bladder [employer] History: Reports: Musculoskeletal History: Reports: Fibromyalgia, Other (See Below) Other Musculoskeletal History: myalgia and myasitis Neurological History: Reports: Alzheimers Disease Endocrine/Metabolic History: Reports: Diabetes, Type II Hematologic History: Reports: Blood Transfusion(s) Other Hematologic History: Post op at [place] - Infectious Disease History Infectious Disease History: Reports: Chicken Pox, Shingles - Past Surgical History GI Surgical History: Reports: Other (See Below) Social & Family History - Family History Cardiac: Reports: Heart Failure, High Cholesterol, Hypertension GI: Reports: GI bleed OBGYN: Reports: - Tobacco Use Smoking Status *Q: Never Smoker - Caffeine Use Caffeine Use: Reports: Coffee - Recreational Drug Use Recreational Drug Use: No ED ROS GENERAL - Review of Systems Review Of Systems: See Below Constitutional: Denies: Fever, Chills, Diaphoresis HEENT: Denies: Throat Pain Respiratory: Denies: Shortness of Breath Cardiovascular: Reports: Blood Pressure Problem (BP has been low today, in the 90's primarily). Denies: Chest Pain GI/Abdominal: Denies: Abdominal Pain, Nausea, Vomiting Musculoskeletal: Reports: No Symptoms Skin: Reports: No Symptoms Neurological: Reports: No Symptoms ED EXAM, GENERAL - Physical Exam Exam: See Below General Appearance: Alert, No Apparent Distress Eye Exam: Bilateral Eye: PERRL Throat/Mouth: Other (oral mucosa somewhat dry) Head: No: Facial Swelling Neck: Supple, Full Range of Motion Respiratory/Chest: No Respiratory Distress, Lungs Clear, Normal Breath Sounds Cardiovascular: Regular Rate, Rhythm GI/Abdominal: Soft, Non-Tender Extremities: Normal Inspection. No: Pedal Edema, Leg Pain Neurological: Alert, No Motor/Sensory Deficits Skin Exam: Warm, Dry, Normal Color Course - Vital Signs Last Recorded V/S: Last Vital Signs Temp 97.2 F 08/25/17 14:05 Pulse 69 08/25/17 14:05 Resp 16 08/25/17 14:05 BP 98/67 08/25/17 14:05 Pulse Ox 97 08/25/17 14:05 - Orders/Labs/Meds Orders: Active Orders 24 hr Category Date Time Status EKG 12 Lead [EKG Documentation Completion] [RC] STAT Care 08/25/17 14:29 Active Peripheral IV Care [RC] . DIRECTED Care 08/25/17 14:29 Active Peripheral IV Insertion Adult [OM.PC] Stat Oth 08/25/17 14:29 Ordered Labs: Laboratory Tests 08/25/17 08/25/17 Range/Units 14:50 14:50 WBC 14.89 H (3.98-10.04) K/mm3 RBC 4.86 (3.98-5.22) M/mm3 Hgb 14.3 (11.2-15.7) gm/L Hct 43.3 (34.1-44.9) % MCV 89.1 (79.4-94.8) fl MCH 29.4 (25.6-32.2) pg MCHC 33.0 (32.2-35.5) g/dl RDW Std Deviation 49.3 H (36.4-46.3) fL Plt Count 226 (182-369) K/mm3 MPV 12.3 (9.4-12.3) fl Neut % (Auto) 76.0 H (34.0-71.1) % Lymph % (Auto) 11.3 L (19.3-51.7) % [place] % (Auto) 10.7 (4.7-12.5) % Eos % (Auto) 1.3 (0.7-5.8) Baso % (Auto) 0.3 (0.1-1.2) % Neut # (Auto) 11.31 H (1.56-6.13) K/mm3 Lymph # (Auto) 1.68 (1.18-3.74) K/mm3 [place] # (Auto) 1.60 H (0.24-0.36) K/mm3 Eos # (Auto) 0.20 (0.04-0.36) K/mm3 Baso # (Auto) 0.04 (0.01-0.08) K/mm3 Manual Slide Review Normal smear Sodium 138 (136-145) mEq/L Potassium 5.0 (3.5-5.1) mEq/L Chloride 102 (98-107) mEq/L Carbon Dioxide 24 (21-32) mEq/L Anion Gap 17.0 H (5-15) BUN 34 H (7-18) mg/dL Creatinine 1.5 H (0.55-1.02) mg/dL Est Cr Clr Drug Dosing 26.81 mL/min Estimated GFR (MDRD) 34 (>60) mL/min BUN/Creatinine Ratio 22.7 H (14-18) Glucose 101 (83-115) mg/dL Calcium 9.2 (8.5-10.1) mg/dL Total Bilirubin 0.5 (0.2-1.0) mg/dL AST 20 (15-37) U/L ALT 32 (14-59) U/L Alkaline Phosphatase 58 (46-116) U/L Total Protein 7.2 (6.4-8.2) g/dl Albumin 3.5 (3.4-5.0) g/dl Globulin 3.7 gm/dL Albumin/Globulin Ratio 1.0 (1-2) Meds: Medications Discontinued Medications Generic Name Dose Route Start Last Admin Trade Name Freq PRN Reason Stop Dose Admin Sodium Chloride 1,000 mls @ 999 mls/hr 08/25/17 14:45 08/25/17 14:47 Normal Saline IV 999 mls/hr ONETIME CHRISTINE Administration Sodium Chloride 500 mls @ 999 mls/hr 08/25/17 15:56 08/25/17 16:03 Normal Saline IV 08/25/17 16:26 999 mls/hr .BOLUS ONE Administration Sodium Chloride 10 ml 08/25/17 14:29 08/25/17 14:48 Saline Flush FLUSH 10 ml ASDIRECTED PRN Administration Keep Vein Open - Re-Assessments/Exams Free Text/Narrative Re-Assessment/Exam: 08/25/17 20:34 anion gap, BUN, creat. all mildly elevated, have given 1 liter of NS, BP continues in the upper 90's. Flow sheet shows she often runs somewhat low BP, she has been up ambulatory with no difficulty, discharge instr. as documented. Departure - Departure Time of Disposition: 16:47 Disposition: Home, Self-Care 01 Condition: Fair Clinical Impression: Dehydration Hypotension Qualifiers: Hypotension type: unspecified hypotension type Qualified Code(s): I95.9 - Hypotension, unspecified - Discharge Information Instructions: Hypotension, [id number], Dehydration, Adult, [id number] Referrals: Miguel Bond MD [Primary Care Provider] - Forms: ED Department Discharge Additional Instructions: Do not take your hydrochlorothiazide tomorrow, you may take the rest of your medications as previously prescribed, resume your hydrochlorothiazide Friday , follow-up clinic as needed, return to ED if symptoms worsening in any way. - My Orders Last 24 Hours: My Active Orders 08/25/17 14:29 EKG 12 Lead [EKG Documentation Completion] [RC] STAT Peripheral IV Care [RC] . DIRECTED Peripheral IV Insertion Adult [OM.PC] Stat - Assessment/Plan Last 24 Hours: My Active Orders 08/25/17 14:29 EKG 12 Lead [EKG Documentation Completion] [RC] STAT Peripheral IV Care [RC] . DIRECTED Peripheral IV Insertion Adult [OM.PC] Stat
== END 2017-08-25 17:05 | disposition home or self-care (01) ==
LOC: JD.ED 13:26
DX: I95.9 Hypotension, unspecified (principal); E86.0 Dehydration; E11.9 Type 2 diabetes mellitus without complications; Z88.5 Allergy status to narcotic agent; Z79.899 Other long term (current) drug therapy
CPT/HCPCS: 36415; 80053; 85025; 93005; 96360; 96361; 99285; J7040; J7050; 93010; 99284

== ENCOUNTER 2022-04-29 05:05 | Emergency (ER) | payer MEDICARE, OTHER ==
[2022-04-29 05:33] VITALS: BP 134/92; PULSE 84
== END 2022-04-29 07:48 | disposition home or self-care (01) ==
LOC: JD.ED 05:05
DX: R04.0 Epistaxis (principal); E78.00 Pure hypercholesterolemia, unspecified; I10 Essential (primary) hypertension; E11.9 Type 2 diabetes mellitus without complications; Z88.5 Allergy status to narcotic agent; Z79.01 Long term (current) use of anticoagulants; Z79.899 Other long term (current) drug therapy
CPT/HCPCS: 30901; 36415; 80053; 85025; 85610; 85730; 99282; 99283-25

== ENCOUNTER 2022-09-18 10:23 | Emergency (ER) | payer MEDICARE, OTHER ==
[2022-09-18 12:14] LABS: CORONAVIRUS COVID-19 NAA NEGATIVE (NEGATIVE)
[2022-09-18 13:29] LABS: ESTIMATED GFR 32 mL/min (>60)
[2022-09-18 14:37] VITALS: BP 121/74; PULSE 74
== END 2022-09-18 14:30 | disposition home or self-care (01) ==
LOC: JD.ED 10:23
DX: N30.00 Acute cystitis without hematuria (principal); B34.9 Viral infection, unspecified; E78.00 Pure hypercholesterolemia, unspecified; I10 Essential (primary) hypertension; E11.9 Type 2 diabetes mellitus without complications; Z88.6 Allergy status to analgesic agent; Z79.899 Other long term (current) drug therapy; Z79.01 Long term (current) use of anticoagulants; Z79.84 Long term (current) use of oral hypoglycemic drugs; Z20.822 Contact with and (suspected) exposure to COVID-19
CPT/HCPCS: 0241U; 36415; 71045; 80053; 81001; 85025; 86140; 87086; 99283

== ENCOUNTER 2022-12-03 09:23 | Emergency (ER) | payer MEDICARE, OTHER ==
[2022-12-03] MEDS ORDERED: Sodium Chloride 0.9% 10 ML Syringe FLUSH PRN (09:39)
[2022-12-03] MEDS ORDERED: Sodium Chloride 0.9% 1,000 ML IV SCH (09:45)
[2022-12-03 09:57] VITALS: PULSE 90
[2022-12-03 10:24] LABS: ESTIMATED GFR 25 mL/min (>60)
[2022-12-03] MEDS ORDERED: Sodium Chloride 0.9% 500 ML IV ONE (10:44)
[2022-12-03 11:26] LABS: CORONAVIRUS COVID-19 NAA NEGATIVE (NEGATIVE)
[2022-12-03 15:32] VITALS: BP 127/64
== END 2022-12-03 15:03 | disposition home or self-care (01) ==
LOC: JD.ED 09:23
DX: S09.90XA Unspecified injury of head, initial encounter (principal); N28.9 Disorder of kidney and ureter, unspecified; E78.00 Pure hypercholesterolemia, unspecified; I10 Essential (primary) hypertension; E11.9 Type 2 diabetes mellitus without complications; Z88.6 Allergy status to analgesic agent; Z79.899 Other long term (current) drug therapy; Z79.01 Long term (current) use of anticoagulants; Z86.16 Personal history of COVID-19; Z79.84 Long term (current) use of oral hypoglycemic drugs; Z20.822 Contact with and (suspected) exposure to COVID-19; W01.10XA Fall on same level from slipping, tripping and stumbling with subsequent striking against unspecified object, initial encounter
CPT/HCPCS: 0241U; 36415; 70450; 80053; 81001; 84484; 85025; 85610; 85730; 86140; 93005; 96360; 96361; 99284; J3490; J7030; 93010

== ENCOUNTER 2023-08-05 13:56 | Emergency (ER) | payer MEDICARE, OTHER ==
[2023-08-05 14:56] LABS: BASOPHILS ABSOLUTE AUTO 0.1 K/mm3 (0.0-0.2); BASOPHILS PERCENT AUTO 0.6 % (0.0-1.0); EOSINOPHILS ABSOLUTE AUTO 0.2 K/mm3 (0.0-0.4); EOSINOPHILS PERCENT AUTO 2.2 % (0.0-6.0); HEMATOCRIT 41.3 % (37.0-47.0); HEMOGLOBIN 13.2 gm/dl (12.0-16.0); IMMATURE GRAN ABSOLUTE AUTO 0.07 K/mm3 (0.00-0.05); IMMATURE GRAN PERCENT AUTO 0.7 % (0.0-0.4); LYMPHOCYTES ABSOLUTE AUTO 0.9 K/mm3 (1.0-4.8); LYMPHOCYTES PERCENT AUTO 8.5 % (24.0-44.0); MEAN CORPUSCULAR HEMOGLOBIN 29.5 pg (28.0-32.0); MEAN CORPUSCULAR VOLUME 92.4 fl (83.0-99.0); MEAN PLATELET VOLUME 12.3 fl (9.4-12.3); MONOCYTES ABSOLUTE AUTO 1.2 K/mm3 (0.0-0.8); MONOCYTES PERCENT AUTO 11.2 % (0.0-8.0); NEUTROPHILS ABSOLUTE AUTO 8.1 K/mm3 (1.8-7.7); NEUTROPHILS PERCENT AUTO 76.8 % (41.0-71.0); PLATELET COUNT,PLT 178 K/mm3 (150-400); RED BLOOD CELL COUNT 4.47 M/mm3 (4.10-5.30); WHITE BLOOD CELL COUNT,WBC 10.47 K/mm3 (3.9-11.3)
[2023-08-05 15:21] LABS: CORONAVIRUS COVID-19 NAA NEGATIVE (NEGATIVE); INFLUENZA A NAA NEGATIVE (NEGATIVE); RESPIRATORY SYNCYTIAL VIR NAA NEGATIVE (NEGATIVE)
[2023-08-05 15:25] LABS: A/G RATIO 0.8 (1-2); ALBUMIN 3.5 g/dl (3.4-5.0); ANION GAP 15.2 (5-15); BILIRUBIN TOTAL 0.4 mg/dL (0.2-1.0); BUN/CREATININE RATIO 13.2 (14-18); C-REACTIVE PROTEIN 5.7 mg/dL (<1.0); CALCIUM 9.7 mg/dL (8.5-10.1); CREATININE 1.9 mg/dL (0.55-1.02); EST CRCL DRUG DOSING (CG) 18.37 mL/min; POTASSIUM,K 3.2 mEq/L (3.5-5.1)
[2023-08-05] MEDS ORDERED: Potassium Chloride 20 MEQ Tab.ER PO ONE (16:27)
[2023-08-05] MEDS ORDERED: Erythromycin Base 0.5% Ophth Oint 1 GM Tube EYEBOTH ONE ×2 (16:41→16:55)
[2023-08-05 16:43] LABS: APPEARANCE,URINE SLT CLOUDY (Clear); BILIRUBIN,URINE NEGATIVE (Negative); COLOR,URINE YELLOW (Yellow); GLUCOSE,URINE NEGATIVE (Negative); KETONES,URINE NEGATIVE (Negative); LEUKOCYTE ESTERASE,URINE NEGATIVE (Negative); NITRITE,URINE NEGATIVE (Negative); OCCULT BLOOD,URINE 2+ (Negative); PROTEIN,URINE 3+ (Negative); UROBILINOGEN,URINE 0.2 (0.2-1.0)
[2023-08-05 17:07] LABS: BACTERIA,URINE MANY /hpf (FEW); MUCUS,URINE FEW /hpf (FEW); SQUAMOUS EPITHELIAL CELLS,UR 0-5 /hpf (0-5)
[2023-08-05] MEDS ORDERED: Amoxicillin/Clavulanate K 875-125 MG Tab PO ONE (18:25)
[2023-08-05 19:02] VITALS: BP 125/77; PULSE 84
== END 2023-08-05 18:55 | disposition home or self-care (01) ==
LOC: JD.ED 13:56
DX: H10.33 Unspecified acute conjunctivitis, bilateral (principal); R31.9 Hematuria, unspecified; J01.41 Acute recurrent pansinusitis; I10 Essential (primary) hypertension; E78.00 Pure hypercholesterolemia, unspecified; E11.9 Type 2 diabetes mellitus without complications; Z86.16 Personal history of COVID-19; Z20.822 Contact with and (suspected) exposure to COVID-19; Z88.5 Allergy status to narcotic agent; Z79.899 Other long term (current) drug therapy; Z79.84 Long term (current) use of oral hypoglycemic drugs; Z79.01 Long term (current) use of anticoagulants
CPT/HCPCS: 0241U; 36415; 70450; 71045; 80053; 81001; 85025; 86140; 93005; 99285; A9270; 93010; 99284